=== PATIENT | male | born 1960 | race Caucasian/White ===

== ENCOUNTER 2016-09-11 10:29 | Inpatient (IN) | payer OTHER ==
--- NOTE | ~2016-09-11 | EKG ---
PATIENT: VENKATA TAYLOR UNIT #: [id number] Ventricular Rate: 109 BPM Atrial Rate: 35 BPM P-R Interval: 146 ms QRS Duration: 86 ms Q-T Interval: 352 ms QTC Calculation(Bezet): 474 ms P [place]: 36 degrees Calculated R [place]: 29 degrees Calculated T [place]: 94 degrees Diagnosis Line: Sinus rhythm with frequent PVC's and triplets Diagnosis Line: Possible Inferior infarct , age undetermined Diagnosis Line: Abnormal ECG Diagnosis Line: Diagnosis Line: Confirmed by ASIM TEMPLETON MD ([id number]) on Diagnosis Line: 09/12/2016 11:48:46 AM INTERPRETING MDKrystle MOON
--- NOTE | ~2016-09-11 | EKG ---
PATIENT: VENKATA TALYOR UNIT #: [id number] Ventricular Rate: 61 BPM Atrial Rate: 61 BPM P-R Interval: 150 ms QRS Duration: 92 ms Q-T Interval: 430 ms QTC Calculation(Bezet): 432 ms P [place]: 49 degrees Calculated R [place]: 39 degrees Calculated T [place]: 49 degrees Diagnosis Line: Normal sinus rhythm Diagnosis Line: Possible Inferior infarct (cited on or before Diagnosis Line: 13-SEP-2016) Diagnosis Line: Abnormal ECG Diagnosis Line: When compared with ECG of 15-SEP-2016 13:20, Diagnosis Line: (unconfirmed) Diagnosis Line: Premature ventricular complexes are no longer Diagnosis Line: Present Diagnosis Line: Confirmed by RICARDO SANTOS MD ([id number]) on 09/16/2016 Diagnosis Line: 6:03:25 PM INTERPRETING MD: TOM CARRILLO
--- NOTE | ~2016-09-11 | CO ---
Unit #: [id number] #: [id number] Patient: VENKATA TAYLOR [id number] [facility]. [place], [place] [address] [id number] I MR#: [id number] NAME: VENKATA TAYLOR ROOM: [facility] Age: 56 Sex: M Admission Date: 09/11/2016 : 1960 Attending Physician: Silvia Pruitt M.D. Primary Care Physician: Josias Toussaint M.D. Consultation Date: 09/11/2016 CONSULTATION REPORT PRIMARY CARE PHYSICIAN Josias Toussaint M.D. CONSULTING PHYSICIAN Dr. Janell Minor. REASON FOR CONSULTATION Altered mental status, status post arrest. Verbal order received from him. PATIENT IDENTIFICATION This is a 56-year-old, unknown handedness, male, evaluated initially in the ED T6, he is now currently in ICU 22. SOURCE OF INFORMATION Obtained from the patient's at the bedside as well as medical record. HISTORY OF PRESENT ILLNESS This is a 56-year-old male with past medical history of CAD, hypertension, hyperlipidemia, who presented to [facility] ER after collapsing at work and experienced resuscitated arrest. The patient's states that he has not had any complaints prior to going to work. No recent illness or any positive symptoms of any kind. No complaints of chest pain, shortness of breath, any neurologic changes, or symptoms. The patient is apparently in his usual state of health. He had gone to the [employer] basketball game on the day prior to admission. This morning, he left for work around 6:30 and was seen by his to be in his usual state of health and again he had no complaints. He went to work and apparently collapsed at work. They did have an AED there at the work site and initially the rhythm was read as shock advised. He was shocked three times and had return of spontaneous circulation. He was then brought to the ER for further evaluation as obviously EMS was called. Upon arrival to the ER, the patient was hypotensive. He received total of 3 L of normal saline in the ER. Urinalysis showed findings concerning for UTI. He was given 1 g of Rocephin. He was started on Versed. I believe he was also started on amiodarone. He was seen by Cardiology in the ED. He had a head CT done without contrast that is normal. Head does not show any loss of the mack-white matter at this time upon personal review. Imaging has been reviewed and discussed with Dr. Lloyd. PAST MEDICAL HISTORY 1. Admission to [facility] about a year ago. Details unknown. 2. CAD with history of cardiac stent placement. 3. Hypertension. Unit #: [id number] #: [id number] Patient: VENKATA TAYLOR 4. Hyperlipidemia. 5. Questionable CHF, but no documentation of echocardiogram in [facility]. FAMILY HISTORY Positive for CAD and pacemaker. SOCIAL HISTORY The patient is . Lives with his . He works outside the home. He smokes a pack of cigarettes daily. Drinks alcohol on occasion, but no report of any abuse or illicit drug use. ALLERGIES No known drug allergies. HOME MEDICATIONS As per med rec include metoprolol succinate 50 mg p.o. daily, atorvastatin calcium 80 mg p.o. daily, Plavix 75 mg p.o. daily, aspirin 81 mg p.o. daily. REVIEW OF SYSTEMS Unable to obtain from the patient given his mental status. PHYSICAL EXAMINATION VITAL SIGNS: Temperature is currently 33.3 degrees Celsius. He is on hypothermia protocol, pulse 70, respirations 29, blood pressure 127/89, oxygen saturation 93%. Height 6 feet 1 inch, weight 190 pounds. BMI 25. NEUROLOGIC: Upon my exam initially, the patient is experiencing decorticate posturing and essentially the same upon repeat evaluation with Dr. Lloyd. He initially had negative corneals with me, but has positive corneals with Dr. Lloyd's evaluation. Pupils are 5+. They are reactive, but sluggish. He has positive doll's eyes. No myoclonus seen. No purposeful movements seen. Cranial nerve exam, unable to evaluate sebastian of vision. Again eyes are conjugate with positive oculocephalic reflex. No ptosis or nystagmus or hippus seen. Unable to assess sensation of face and scalp or strength of muscles of facial expression, but no asymmetry seen. Unable to assess hearing, tongue, uvula, palate, head turning, or shoulder shrug. Neck is supple. Motor exam, he has positive decorticate posturing bilaterally somewhat rigid. Sensory exam, unable to evaluate in detail. Decorticate posturing in response to noxious stimuli. Gait and Romberg deferred. Reflexes, unable to elicit. Coordination unable to assess. DIAGNOSTIC STUDIES IMAGING STUDIES: CT of the head, please see above. LABORATORY RESULTS: PT 11.1, INR 1.1. Initial troponin 0.17, repeat troponin 1.19 and repeat troponin following that 1.07. Sodium 139, potassium 4.6, chloride 113, CO2 of 15, glucose 143, BUN 17, creatinine 1.0, estimated GFR above 60, calcium 7, phosphorus 2.2, magnesium 2.1. CK total 1452. PTT 47.1. White blood cell count 13.2, hemoglobin 13.3, hematocrit 39.5, and platelet count 172. Lactic acid 1.1. TSH 4.27, cholesterol 182, triglycerides 294, LDL 88, HDL 33. Other labs and studies are as per chart. Initial lactic acid 4.6. Urine drug screen negative. All diagnostic studies and labs are as per chart have been reviewed. IMPRESSION 1. Status post arrest. Unit #: [id number] #: [id number] Patient: VENKATA TAYLOR 2. Urinary tract infection. 3. Coronary artery disease. 4. Acute respiratory failure. 5. Tobacco use. 6. Elevated troponin. PLAN We will re-evaluate clinically. The patient is being coded on hypothermia protocol. Has shown some improvement neurologically, but still with abnormal findings. Again, the patient has been started on hypothermia, so we will have to re-evaluate over the next 24 to 48 hours. The patient would not be off hypothermia protocol for at least another 24 plus hours. Events happened this morning, so we need to give the patient time to see if the patient has any neurologic improvement and we discussed this with the patient's at the bedside. Unable to provide a neurologic prognosis at this time. We will follow closely along with you and repeat imaging as condition allows and indicates and further discussion with the patient's regarding prognosis. Pending re-evaluation at 48 to 72 hours. Please call for any questions or issues. We thank you very much for allowing us to assist in care of this patient. Dictated by... Saige Rosario A.P.R.N. for Latricia Lloyd M.D. ALEXY/amanda TD: 09/12/2016 04:10 JOB #: [id number] CONSULTATION REPORT X Saige Rosario APRN CONSULTATION REPORT
--- NOTE | ~2016-09-11 | CO ---
Unit #: [id number] #: [id number] Patient: VENKATA TAYLOR [id number] [place], [place] [address] [id number] I MR#: [id number] NAME: VENKATA TAYLOR ROOM: [facility] Age: 56 Sex: M Admission Date: 09/11/2016 : 1960 Attending Physician: Silvia Pruitt M.D. Primary Care Physician: Josias Toussaint M.D. Consultation Date: 09/11/2016 CONSULTATION REPORT REASON FOR CONSULT ICU management. CHIEF COMPLAINT Cardiac arrest. HISTORY OF PRESENT ILLNESS This is a 56-year-old male with past medical history significant for coronary artery disease, hypertension and hyperlipidemia who presented to the emergency room for evaluation of the above. History was obtained from ER physician, house doctor and the who is at bedside. Per , the patient was doing okay up to this morning when he went to work, but then, all of a sudden, he was witnessed by some coworkers to pass out. EAD was immediately placed on him, and shock was advised. The patient shocked 3 times with return of spontaneous circulation. He was brought to the emergency room via EMS. In the ER the patient had multiple runs of V tach, but he did not lose his pulse. He is currently on the vent with normal blood pressure. The patient has no corneal reflex, and he is decorticating with cough reflex. REVIEW OF SYSTEMS Unable to obtain from the patient due to his condition. PAST MEDICAL HISTORY 1. Coronary artery disease. 2. Hypertension. 3. Hyperlipidemia. 4. Possible congestive heart failure. PAST SURGICAL HISTORY 1. Cardiac stent placement. 2. Cardiac cath. SOCIAL HISTORY The patient lives with his . He smokes 1 pack per day. He occasionally drinks alcohol. CODE STATUS Full. FAMILY HISTORY His mother had a pacemaker. Unit #: [id number] #: [id number] Patient: VENKATA TAYLOR ALLERGIES No known drug allergies. HOME MEDICATIONS Aspirin and Plavix and some blood pressure medication. PHYSICAL EXAMINATION GENERAL: The patient appears ill on the ventilator. VITAL SIGNS: Blood pressure 136/74, respiratory rate 45, O2 saturation 98%. HEENT: Atraumatic, normocephalic. PERRLA. Poor dentition. NECK: Supple. No JVD. No lymphadenopathy. CHEST: Bilateral fine rhonchi. HEART: S1, S2. No murmur, gallops or rubs. ABDOMEN: Soft, nontender. Bowel sounds positive. No hepatosplenomegaly. EXTREMITIES: No edema or cyanosis. SKIN: No rashes. 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 He is decorticating to cough reflex. No corneal reflex. He is not withdrawing to painful stimuli. DIAGNOSTIC STUDIES LABORATORY: Creatinine 1.6, bicarb 12, calcium 8.2. White blood count 9.7. ASSESSMENT 1. Acute hypoxic respiratory failure. 2. Status post V tach arrest. 3. Rule out anoxic brain injury. 4. Acute kidney injury. 5. Lactic acidosis. PLAN 1. The patient is very critical. Will continue the patient on vent support. 2. Hypothermia protocol will be initiated with the help of neurology and cardiology. 3. Amiodarone/lidocaine drips. 4. Full treatment Lovenox. 5. Propofol drip. 6. Levophed drip if needed. 7. DVT/GI prophylaxis. NOTE: Critical care time spent on this patient was 50 minutes. Dictated by... Sly Minor M.D. EA/damien TD: 09/11/2016 15:32 JOB #: [id number] Unit #: [id number] #: [id number] Patient: VENKATA TAYLOR CONSULTATION REPORT X SLY FLYNN MD X CONSULTATION REPORT
--- NOTE | ~2016-09-11 | DS ---
Unit #: [id number] #: [id number] Patient: VENKATA TAYLOR [id number] [place], [place] [address] [id number] I MR#: [id number] NAME: VENKATA TAYLOR ROOM: 571 Age: 56 Sex: M Admission Date: 09/11/2016 : 1960 Discharge Date: 09/19/2016 Attending Physician: Reinaldo Carcamo M.D. Primary Care Physician: Josias Toussaint M.D. DISCHARGE SUMMARY CONSULTANTS 1. Dr. Janell Minor 2. Dr. Kyle 3. Dr. Lloyd PROCEDURES 1. Hypothermia protocol. 2. Cardiac catheterization status post stent in the left circumflex. ADMISSION DIAGNOSIS Resuscitated arrest. SECONDARY DIAGNOSES 1. Status post cardiac arrest resuscitated on hypothermia protocol, recovered well. 2. Coronary artery disease, status post stent placement. 3. Multiple VT. He will be discharged on LifeVest. 4. Hypertension. 5. Hyperlipidemia. HISTORY OF PRESENT ILLNESS The patient is a 56-year-old with the past medical history of coronary artery disease, hypertension, hyperlipidemia, who was admitted on 09/11/2016 through the emergency room with the chief complaint of status post cardiac arrest. In the hospital course initially he was started on hypothermia protocol, he was intubated, he was in the ICU and started having multiple VT and Cardiology started him on lidocaine drip. The patient slowly stabilized. In the hospital course, on 09/15/2016, he had a cardiac catheterization and had a stent placed. He had a 2D echo done which showed an EF of 30% to 35%, severe inferior wall and apical hypokinesia cannot be ruled out. Technically difficult exam. Mild mitral regurgitation, mild tricuspid regurgitation and with an right ventricular systolic pressure of 36 mmHg. The patient was slowly extubated, he was doing well on the floor, he was transferred to the telemetry from the ICU. In the hospital course, he was placed with a LifeVest. Dr. Kyle recommended the patient to be discharged home with the LifeVest. If he is doing better, follow with him, clinically and he may require down the road an AICD placement to be done as an outpatient. I requested the patient to follow with Dr. Kyle as an outpatient, take all of his medications. If he at all he develops any chest pain or palpitations, call 911 or go to the nearest emergency room. He was seen by Neurology and, initially, there was a question of anoxic encephalopathy. Slowly he recovered well and now he is pretty much back Unit #: [id number] #: [id number] Patient: VENKATA TAYLOR to normal. PHYSICAL EXAMINATION ON DISCHARGE VITAL SIGNS: Temperature 97.9, pulse rate 65, respiratory rate 16, blood pressure 102/71. GENERAL: Patient is alert, oriented times 3, lying in the bed in no acute distress. HEENT: Normocephalic, atraumatic. No icterus. PERRLA. Extraocular muscles are intact. NECK: Supple. No JVD. HEART: S1, S2 regular rate and rhythm. CHEST: Bilateral equal air entry. Clear to auscultation. ABDOMEN: Soft and nontender. EXTREMITIES: No edema. Normal pulses. The patient will be discharged on LifeVest. DISCHARGE MEDICATIONS Include: 1. Magnesium oxide 400 mg b.i.d. 2. Flonase 0.04% nasal spray b.i.d. 3. Amiodarone 400 mg b.i.d. for 4 more days; 200 mg b.i.d. for 7 days; then, 200 mg p.o. daily. 4. Metoprolol 12.5 mg p.o. b.i.d. 5. Lasix 40 mg p.o. b.i.d. 6. Lipitor 20 mg h.s. 7. Lisinopril 2.5 mg h.s. 8. Aspirin 81 mg daily. 9. Brilinta 90 mg p.o. b.i.d. 10. Spironolactone 25 mg daily. 11. Protonix 40 mg daily. 12. Potassium phosphorus/sodium phosphorus 250 mg, 625 mg one pack b.i.d. 13. KCl 40 mEq p.o. daily. 14. Nitroglycerin 0.4 mg chest pain p.r.n. every 5 minutes x3. DISCHARGE INSTRUCTIONS Patient is requested to follow with Dr. Kyle as an outpatient. Total time spent on his discharge 25 minutes. Dictated by..Salty Casas/korey TD: 09/20/2016 21:20 JOB #: [id number] Unit #: [id number] #: [id number] Patient: VENKATA TAYLOR DISCHARGE SUMMARY X X DISCHARGE SUMMARY
--- NOTE | ~2016-09-11 | CT71 ---
[facility] A Service of [facility] RADIOLOGY TEXT RESULTS PATIENT: VENKATA TAYLOR LOCATION: CICCU3 CICCU3- : 58 UNIT #: [id number] AGE: [address]: Reinaldo Carcamo MD SEX: M ORDER DR: [id number] [facility] [address]. [place], [place] [address] [id number] I MR#: [id number] Acc #: [id number] NAME: VENKATA TAYLOR : 1960 SEX: M STUDY DATE/TIME: 09/11/2016 8:39 UNIT: CEDOF ROOM: 64509 STUDY DESCRIPTION: CT Head Wo Contrast Attending Physician: Silvia Pruitt M.D. Ordering Physician: Morgan Akbar M.D. Primary Care Physician: Josias Toussaint M.D. MEDICAL IMAGING REPORT This report is preliminary unless electronic signature is present EXAM Head CT no contrast PROCXEDURE Axial unenhanced head CT COMPARISON: None HISTORY Recent cardiac arrest with confusion for one day. The CT exam was performed with one or more of the following radiation dose reduction techniques: automatic exposure control, adjustment of mA and/or kV according to patient size, and iterative reconstruction. FINDINGS Brain parenchymal density is normal. There is no intracranial hemorrhage or mass. There is no hydrocephalus or extraaxial fluid collection. The extracranial soft tissues are unremarkable. The skull base and calvaria re unremarkable. IMPRESSION Normal negative unenhanced head CT. Dictated by... Harlan Valderrama M.D. THIS IS AN ELECTRONICALLY VERIFIED REPORT Harlan Valderrama M.D. at 09/14/2016 7:06 PM TEV/cmm [facility] A Service of [facility] RADIOLOGY TEXT RESULTS PATIENT: VENKATA TAYLOR LOCATION: CICCU3 CICCU3- : 58 UNIT #: [id number] AGE: [address]: Reinaldo Carcamo MD SEX: M ORDER DR: TD: 09/11/2016 11:28 JOB #: [id number] MEDICAL IMAGING REPORT COPY
--- NOTE | ~2016-09-11 | EKG ---
PATIENT: VENKATA TAYLOR UNIT #: [id number] Ventricular Rate: 81 BPM Atrial Rate: 81 BPM P-R Interval: 144 ms QRS Duration: 84 ms Q-T Interval: 376 ms QTC Calculation(Bezet): 436 ms P [place]: 46 degrees Calculated R [place]: 3 degrees Calculated T [place]: 16 degrees Diagnosis Line: Sinus rhythm with frequent Premature ventricular Diagnosis Line: complexes Diagnosis Line: Inferior infarct (cited on or before 13-SEP-2016) Diagnosis Line: Abnormal ECG Diagnosis Line: When compared with ECG of 15-SEP-2016 06:28, Diagnosis Line: (unconfirmed) Diagnosis Line: No significant change was found Diagnosis Line: Confirmed by RICARDO SANTOS MD ([id number]) on 09/16/2016 Diagnosis Line: 5:58:51 PM INTERPRETING MD: TOM CARRILLO
--- NOTE | ~2016-09-11 | HP ---
Unit #: [id number] #: [id number] Patient: VENKATA TAYLOR [id number] [facility]. [place], [place] [address] [id number] I MR#: [id number] NAME: VENKATA TAYLOR ROOM: 80148 Age: 56 Sex: M Admission Date: 09/11/2016 : 1960 Attending Physician: Silvia Pruitt M.D. Primary Care Physician: Josias Toussaint M.D. HISTORY AND PHYSICAL CHIEF COMPLAINT Resuscitated arrest. HISTORY OF PRESENT ILLNESS The patient is a 56-year-old male with past medical history of coronary artery disease, hypertension and hyperlipidemia who presented to the emergency department for evaluation of the above. History is obtained from chart review and discussion with ER staff, as well as the patient's , who is at the bedside. The patient is unable to provide history. The patient was apparently in his usual state of health. He, in fact, went to the [employer] basketball game on the day prior to admission. This morning he left for work around 6:30 and was seen by his to be in his usual state of health. He had no complaints. He apparently went to work. He collapsed while at work. They did have an AED at the worksite and initially the rhythm was read as "shock advised." He was shocked 3 times and had return of spontaneous circulation. He was brought to the emergency department for further evaluation. Upon arrival in the emergency department, the patient's was 82, respirations 25, blood pressure 99/85. He was started on a Versed drip. He was given 2 liters of normal saline. He actually received a total of 3 liters of normal saline in the emergency department. Urinalysis showed findings concerning for urinary tract infection. He was also given a gram of Rocephin. Laboratory is notable for glucose of 328, bicarb 12, anion gap 19. He is being admitted to [facility] for evaluation and further treatment. Of note, the patient has had several runs of V tach in the emergency department. He is currently being seen by cardiology. They have started him on an amiodarone drip. PAST MEDICAL HISTORY 1. Admission to [facility] more than a year ago. 2. Coronary artery disease status post cardiac stent placement. 3. Hypertension. 4. Hyperlipidemia. 5. Possibly CHF with no documented echocardiogram in [facility]. PAST SURGICAL HISTORY 1. Cardiac stent placement. 2. Cardiac catheterization. SOCIAL HISTORY The patient lives with his . He smokes a pack of cigarettes daily. He occasionally drinks alcohol. He works at "[employer] Unit #: [id number] #: [id number] Patient: VENKATA TAYLOR CODE STATUS Full code. FAMILY HISTORY Notable for his mother having a pacemaker. ALLERGIES Unknown. HOME MEDICATIONS Include aspirin and Plavix. Home medications will need to be reviewed and verified. REVIEW OF SYSTEMS A 10-point review of systems is unobtainable from the patient due to altered mental status. PHYSICAL EXAMINATION VITAL SIGNS: Temperature is not recorded. Pulse 82, respirations 25, blood pressure 99/85. GENERAL: The patient is currently on a Versed drip. HEENT: The head is atraumatic. Mucous membranes are moist. NECK: Supple. Trachea is midline. CARDIOVASCULAR: Regular rate and rhythm. RESPIRATORY: Lungs are relatively clear to auscultation bilaterally. He is currently intubated. ABDOMEN: Soft. Bowel sounds are present in all 4 quadrants. EXTREMITIES: There is no pedal edema. There are no signs of trauma. PSYCHIATRIC: Unable to assess. SKIN: Skin of examined areas is warm and dry. NEUROLOGIC: The pupils are equal and round. He is currently sedated. DIAGNOSTIC TESTS CARDIOVASCULAR: EKG is not currently on the chart but, per ER documentation, showed normal sinus rhythm with inferior Q waves and a rate of 83 beats per minute. IMAGING: Chest x-ray shows mild vascular congestion. CT of the head shows no acute abnormality. LABORATORY: Complete blood count is completely normal. Troponin is less than 0.05. INR is 1. Comprehensive metabolic panel notable for bicarb of 12, glucose 328, anion gap 19, BUN 17, creatinine 1.6, calcium 8.2, AST 52, ALT 46. Tylenol, salicylate and alcohol levels are negative. Urine tox screen is negative. Urinalysis notable for 3+ protein, 250 glucose, 2+ blood, 25-50 red blood cells, innumerable white blood cells, 2+ bacteria. Arterial blood gas shows pH of 7.22, pCO2 of 38.6, pO2 203 on assist control with an FIO2 of 100%. Magnesium is 2.4. ASSESSMENT 1. The patient is a 56-year-old male with resuscitated arrest. The patient is currently on an amiodarone drip. I have discussed this patient with Dr. Minor, and we are going to start hypothermia protocol. 2. Urinary tract infection. 3. Hyperglycemia with no history of diabetes. 4. History of coronary artery disease status post stent placement. Unit #: [id number] #: [id number] Patient: VENKATA TAYLOR 5. Hypertension. 6. Hyperlipidemia. 7. Tobacco abuse. PLAN 1. Admit to ICU. 2. NPO. 3. Consult Dr. Minor/Dr. Suresh regarding resuscitated arrest and vent management. 4. Consult Dr. Kyle regarding resuscitated arrest. 5. Serial cardiac enzymes. 6. Blood cultures x2. 7. Urine culture and sensitivity on urine in the lab. 8. STAT lactic acid. 9. Sepsis protocol. 10. Rocephin 1 gram IV daily. 11. Versed drip per sedation protocol. 12. Levophed drip per protocol for MAP greater than 65. 13. Normal saline at 125 mL and hour. 14. Protonix for GI prophylaxis. 15. SCDs for DVT prophylaxis. 16. Tylenol p.r.n. 17. Hemoglobin A1C. 18. Low-dose sliding scale insulin with Accu-Cheks. 19. TSH. 20. Repeat labs in the morning. 21. Regarding code status, the patient is a full code. NOTE: I discussed the patient's condition with his . All of her questions were answered. Thirty-six minutes critical care time spent in the care of this patient (10:50 to 11:26 a.m.). Dictated by Silvia Pruitt M.D. CAMILO/damien TD: 09/11/2016 11:54 JOB #: [id number] HISTORY AND PHYSICAL X Silvia Pruitt MD HISTORY AND PHYSICAL
--- NOTE | ~2016-09-11 | OR ---
Unit #: [id number] #: [id number] Patient: VENKATA TAYLOR [id number] [address] [address] [id number] I MR#: [id number] NAME: VENKATA TAYLOR ROOM: [facility] Date of Procedure: 09/11/2016 Admission Date: 09/11/2016 Surgeon: Sly Minor M.D. : 1960 Attending Physician: Silvia Pruitt M.D. Primary Care Physician: Josias Toussaint M.D. PROCEDURE OPERATIVE NOTE PROCEDURE PERFORMED Left intrajugular central venous catheter placement with ultrasound guidance. INDICATION FOR PROCEDURE Cardiac arrest. PREOPERATIVE DIAGNOSIS Cardiac arrest. COMPLICATIONS None. DESCRIPTION OF PROCEDURE An informed consent was obtained from the patient's after explaining the benefit and risk of this procedure. The patient was prepped and positioned in a proper way, then body drape was applied. With the ultrasound guidance, a needle was inserted in the left IJ until blood flow was obtained. Then a guidewire was inserted and the needle was removed and dilator was used. Then a catheter was inserted over the guidewire and the guidewire was removed. The catheter was flushed appropriately and sutured in place. Biopatch and clean dressing were applied. STAT chest x-ray confirmed placement with no immediate complication. Dictated by... Salty Muñoz TD: 09/11/2016 15:36 JOB #: [id number] Unit #: [id number] #: [id number] Patient: VENKATA TAYLOR PROCEDURE OPERATIVE NOTE X SLY FLYNN MD X PROCEDURE OPERATIVE NOTE
--- NOTE | ~2016-09-11 | EKG ---
PATIENT: VENKATA TAYLOR UNIT #: [id number] Ventricular Rate: 64 BPM Atrial Rate: 64 BPM P-R Interval: 154 ms QRS Duration: 96 ms Q-T Interval: 450 ms QTC Calculation(Bezet): 464 ms P [place]: 47 degrees Calculated R [place]: 3 degrees Calculated T [place]: 29 degrees Diagnosis Line: Normal sinus rhythm Diagnosis Line: Inferior infarct (cited on or before 13-SEP-2016) Diagnosis Line: Abnormal ECG Diagnosis Line: When compared with ECG of 16-SEP-2016 07:26, Diagnosis Line: No significant change was found Diagnosis Line: Confirmed by RICARDO SANTOS MD ([id number]) on 09/20/2016 Diagnosis Line: 7:14:02 AM INTERPRETING MD: TOM CARRILLO
--- NOTE | ~2016-09-11 | EKG ---
PATIENT: VENKATA TAYLOR UNIT #: [id number] Ventricular Rate: 68 BPM Atrial Rate: 68 BPM P-R Interval: 160 ms QRS Duration: 86 ms Q-T Interval: 406 ms QTC Calculation(Bezet): 431 ms P [place]: 49 degrees Calculated R [place]: 42 degrees Calculated T [place]: 43 degrees Diagnosis Line: Sinus rhythm with occasional Premature ventricular Diagnosis Line: complexes Diagnosis Line: Possible Inferior infarct (cited on or before Diagnosis Line: 13-SEP-2016) Diagnosis Line: Abnormal ECG Diagnosis Line: When compared with ECG of 13-SEP-2016 11:28, Diagnosis Line: Premature ventricular complexes are now Present Diagnosis Line: Nonspecific T wave abnormality, improved in Diagnosis Line: Lateral leads Diagnosis Line: Confirmed by RICARDO SANTOS MD ([id number]) on 09/16/2016 Diagnosis Line: 5:53:59 PM INTERPRETING MD: TOM CARRILLO
--- NOTE | ~2016-09-11 | CR72 ---
[facility] A Service of [facility] RADIOLOGY TEXT RESULTS PATIENT: VENKATA TAYLOR LOCATION: [facility] : [birth year] UNIT #: [id number] AGE: [address]: Reinaldo Carcamo MD SEX: M ORDER DR: [id number] [place] [id number] [facility]. [place], [place] [address] [id number] I MR#: [id number] Acc #: [id number] NAME: VENKATA TAYLOR : 1960 SEX: M STUDY DATE/TIME: 09/13/2016 2:47 UNIT: [facility] ROOM: [facility] STUDY DESCRIPTION: CR Chest Single View Portable Attending Physician: Reinaldo Carcamo M.D. Ordering Physician: Gonzalo Minor M.D. Primary Care Physician: Josias Toussaint M.D. MEDICAL IMAGING REPORT This report is preliminary unless electronic signature is present EXAM Portable AP view of the chest. COMPARISON September 12, 2016 and September 11, 2016 INDICATION 56-year-old male with respiratory failure requiring ventilatory support for 3 days. Cardiac arrest 3 days ago. FINDINGS AND IMPRESSION Endotracheal tube tip terminates 6.2 cm above the marielena. Left internal jugular catheter terminates in the upper SVC. Gastric suction type tube is noted with the side port in the gastric body. There is top normal heart size for portable technique and low lung volumes. No evidence of pneumothorax or pleural effusion. There may be minimal left retrocardiac opacities, likely not significantly changed from comparison but possibly reflecting atelectasis. Correlation to exclude signs of pneumonia are recommended. Dictated by... Brendon Graves M.D. THIS IS AN ELECTRONICALLY VERIFIED REPORT Brendon Graves M.D. at 09/18/2016 9:00 PM ANTONETTE/jaxon TD: 09/13/2016 09:45 JOB #: [id number] MEDICAL IMAGING REPORT [facility] A Service of [facility] RADIOLOGY TEXT RESULTS PATIENT: VENKATA TAYLOR LOCATION: [facility] 571-01 : 58 UNIT #: [id number] AGE: [address]: Reinaldo Carcamo MD SEX: M ORDER DR: COPY
--- NOTE | ~2016-09-11 | CR72 ---
[facility] A Service of [facility] & [facility] RADIOLOGY TEXT RESULTS PATIENT: VENKATA TAYLOR LOCATION: [place] [address] : 58 UNIT #: [id number] AGE: [address]: Reinaldo Carcamo MD SEX: M ORDER DR: [id number] [facility] [address] [facility] [place], [place] [address] [id number] I MR#: [id number] Acc #: [id number] NAME: VENKATA TAYLOR : 1960 SEX: M STUDY DATE/TIME: 09/17/2016 04:19 UNIT: [facility] ROOM: [facility] STUDY DESCRIPTION: CR Chest Single View Portable Attending Physician: Reinaldo Carcamo M.D. Ordering Physician: Darius Kyle M.D. Primary Care Physician: Josias Toussaint M.D. MEDICAL IMAGING REPORT This report is preliminary unless electronic signature is present EXAM Portable chest, 09/17 at 04:19 INDICATION Status post resuscitated arrest. Respiratory failure. Coronary artery disease. FINDINGS AP portable chest is compared with 09/14/2016. The patient has been extubated. Feeding tube has been removed. Heart size stable. There is some mild atelectasis at the left base. Lungs are otherwise clear. No pneumothorax. Left IJ line in the SVC unchanged. Dictated by... Ken Gregg Jr., M.D. THIS IS AN ELECTRONICALLY VERIFIED REPORT Ken Gregg Jr., M.D. at 09/17/2016 9:33 PM TEX/awais TD: 09/17/2016 17:04 JOB #: [id number] MEDICAL IMAGING REPORT COPY
--- NOTE | ~2016-09-11 | CR72 ---
[facility] A Service of [place] [facility] RADIOLOGY TEXT RESULTS PATIENT: VENKATA TAYLOR LOCATION: [address] : 58 UNIT #: [id number] AGE: [address]: Reinaldo Carcamo MD SEX: M ORDER DR: [id number] [facility] [address] [facility]. [place], [place] [address] [id number] I MR#: [id number] Acc #: [id number] NAME: VENKATA TAYLOR : 1960 SEX: M STUDY DATE/TIME: 09/14/2016 5:40 UNIT: [facility] ROOM: [facility] STUDY DESCRIPTION: CR Chest Single View Portable Attending Physician: Reinaldo Carcamo M.D. Ordering Physician: Gonzalo Minor M.D. Primary Care Physician: Josias Toussaint M.D. MEDICAL IMAGING REPORT This report is preliminary unless electronic signature is present EXAM Portable chest HISTORY Respiratory failure. Cardiac arrest, onset of symptoms 3 days ago. Patient on a ventilator. COMPARISON 09/13/2016 FINDINGS Examination demonstrates interval removal of the patient's NG tube with placement of a flexible feeding tube distal tip well below the GE junction but not visualized on this radiograph. Endotracheal tube, left neck approach central line remain in satisfactory position. Moderate lung volumes. A small amount of right perihilar/right infrahilar atelectasis or infiltrate and a small amount of lingular atelectasis. No dense consolidation. No sizeable effusions. Borderline cardiomegaly. No visible pneumothorax. Dictated by... Yovany Kc M.D. THIS IS AN ELECTRONICALLY VERIFIED REPORT Yovany Kc M.D. at 09/14/2016 3:58 PM MANJINDER/crescencio TD: 09/14/2016 08:36 JOB #: [id number] MEDICAL IMAGING REPORT COPY
--- NOTE | ~2016-09-11 | A ---
[facility] DATE: 09/12/16 Patient: VENKATA TAYLOR Physician: REBECA Address: [address] [place] [address] Room/Bed: [address], Zip: [place] [address] Admit Date: 09/11/16 Date of : 58 Height: 6 1 Weight: 198 90 NUTRITIONAL ASSESSMENT: REASON: NPO STATUS IN ICU, ENTERAL NUTRITION RECOMMENDATIONS 56 yo male admitted after being found down at work, s/p resuscitated arrest PMH: CAD, HTN, HLD, possible CHF, s/p cardiac cath and cardiac stents, smoker Anthropometrics: Ht: 6'1" Wt: 86.5 kg BMI: 25.2 Labs: Cl- 113 Gluc 127 Ca++ 7.4 AST 52 ALT 46 Phos 2.0 Trig 294 Meds: Propofol @ 20.8 mL/hr, KCl, fentanyl, novolog, lopressor, protonix, NaCl I/O & Bowel function: 3078/3136, last BM 09/11, NGT (300 cc output) Skin Integrity: no breakdown noted Edema: none noted Estimated Nutrition Needs: 2162- 2595 kcals (25-30 kcals/kg) 104-130 grams protein (1.2-1.5 grams/kg) Assessment: Chart reviewed, events noted. Pt is intubated and sedated in the ICU. Propofol is providing an additional 549 kcals from lipids at this time. Hypothermia protocol initiated yesterday. RN requested enteral nutrition recommendations for when protocol is lifted. Please see recommendations below. Dx: Inadequate protein-energy intake RT clinical condition AEB NPO status. Intervention: 1. Enteral nutrition once medically feasible Monitoring, Evaluation and Goals: 1. Enteral nutrition; initiate once medically feasible, provide >80% goal volume 2. Labs; WNL 3. Weight; prevent unintentional weight loss Recommendations: 1. Replete electrolytes to WNL (Phos low). 2. Once medically feasible when the pt is hemodynamically stable, recommend initiating [facility] DATE: 09/12/16 Patient: VENKATA TAYLOR Physician: REBECA Address: [address] [place] [address] Room/Bed: [address], Zip: [place] [address] Admit Date: 09/11/16 Date of : [birth year] Height: 6 1 Weight: 198 90 enteral nutrition with Jevity 1.5 @ 20 mL/hr. Increase by 10 mL q 8 hrs as tolerated to indicated goal below based on propofol administration: WHILE THE PT IS RECEIVING PROPOFOL: -Increase Jevity 1.5 to 50 mL/hr + 30 ml Prostat BID to provide: 2549 kcals/ 107 grams protein/ 912 mL free H20 WHEN THE PT IS NO LONGER RECEIVING PROPOFOL: -Increase Jevity 1.5 to 65 mL/hr to provide: 2340 kcals/ 100 grams protein/ 1186 mL free H20 -Discontinue Prostat 3. If enteral nutrition started, monitor for symptoms of intolerance and residuals per protocol. Pt is at moderate-severe nutritional risk. RD will follow hospital course. Respectfully, BRIANA LINN RD, LD [facility] cc: client file
--- NOTE | ~2016-09-11 | CR72 ---
[facility] A Service of [facility] & [facility] RADIOLOGY TEXT RESULTS PATIENT: VENKATA TAYLOR LOCATION: [facility] : 58 UNIT #: [id number] AGE: [address]: Reinaldo Carcamo MD SEX: M ORDER DR: [id number] [facility] [address] [facility]. [place], [place] [address] [id number] I MR#: [id number] Acc #: [id number] NAME: VENKATA TAYLOR : 1960 SEX: M STUDY DATE/TIME: 09/11/2016 8:06 UNIT: [facility] ROOM: [id number] STUDY DESCRIPTION: CR Chest Single View Portable Attending Physician: Silvia Pruitt M.D. Ordering Physician: Morgan Akbar M.D. Primary Care Physician: Josias Toussaint M.D. MEDICAL IMAGING REPORT This report is preliminary unless electronic signature is present EXAM Portable chest x-ray, 09/11/2016. HISTORY Respiratory arrest, status post endotracheal tube placement. Intubated. Cardiac arrest. Full arrest at work this a.m. FINDINGS AP radiograph of chest is presented. No comparisons. Endotracheal tube terminates 4.7 cm above the marielena. Heart mildly enlarged. Evidence of prior coronary artery stenting. Lungs moderately well-inflated. Mild pulmonary vascular prominence suggesting mild vascular congestion. Subtle increase in central interstitial markings, likely reflecting borderline interstitial edema. No dense airspace disease, pleural effusion, or pneumothorax. No suspicious nodule. At least mild gaseous distention of stomach. No free air. Dictated by... Daniel Armstrong M.D. THIS IS AN ELECTRONICALLY VERIFIED REPORT Daniel Armstrong M.D. at 09/13/2016 7:55 AM AYDE/marychuy TD: 09/11/2016 11:38 JOB #: [id number] MEDICAL IMAGING REPORT COPY
--- NOTE | ~2016-09-11 | CR7 ---
[facility] A Service of [facility] RADIOLOGY TEXT RESULTS PATIENT: VENKATA TAYLOR LOCATION: [address] : 58 UNIT #: [id number] AGE: [address]: Reinaldo Carcamo MD SEX: M ORDER DR: [id number] [place] [address] [place], [place] [address] [id number] I MR#: [id number] Acc #: [id number] NAME: VENKATA TAYLOR : 1960 SEX: M STUDY DATE/TIME: 09/13/2016 13:05 UNIT: [facility] ROOM: [facility] STUDY DESCRIPTION: CR Abdomen Single AP View Attending Physician: Reinaldo Carcamo M.D. Ordering Physician: Reinaldo Carcamo M.D. Primary Care Physician: Josias Toussaint M.D. MEDICAL IMAGING REPORT This report is preliminary unless electronic signature is present EXAM Frontal abdomen 09/13/2016 INDICATIONS Dobbhoff tube placement in a 56-year-old male, abdominal pain. Morbid obesity. Symptoms began today. Status post lap-banding. Frontal abdomen was performed. COMPARISON STUDIES No comparisons FINDINGS There is an enteric tube present and the tip is at the expected level of the gastric antrum/pylorus. There has been interval removal of a preexisting enteric tube and replacement with the existing flexible tip feeding tube. Bowel gas pattern unremarkable. IMPRESSION The tip of the flexible tip feeding tube is at the level of the gastric antrum/pylorus. Dictated by... Andrew Bradford M.D. THIS IS AN ELECTRONICALLY VERIFIED REPORT Andrew Bradford M.D. at 09/13/2016 4:53 PM Yves TD: 09/13/2016 15:16 JOB #: [id number] MEDICAL IMAGING REPORT [facility] A Service of [facility] RADIOLOGY TEXT RESULTS PATIENT: VENKATA TAYLOR LOCATION: [facility] CIC[facility]3-22 : 58 UNIT #: [id number] AGE: [address]: Reinaldo Carcamo MD SEX: M ORDER DR: COPY
--- NOTE | ~2016-09-11 | CR7 ---
[facility] A Service of [facility] & [facility] RADIOLOGY TEXT RESULTS PATIENT: VENKATA TAYLOR LOCATION: [address] : 58 UNIT #: [id number] AGE: [address]: Reinaldo Carcamo MD SEX: M ORDER DR: [id number] [facility] [address] [facility]. [place], [place] [address] [id number] I MR#: [id number] Acc #: [id number] NAME: VENKATA TAYLOR : 1960 SEX: M STUDY DATE/TIME: 09/14/2016 14:23 UNIT: [facility] ROOM: [facility] STUDY DESCRIPTION: CR Abdomen Single AP View Attending Physician: Reinaldo Carcamo M.D. Ordering Physician: Reinaldo Carcamo M.D. Primary Care Physician: Josias Toussaint M.D. MEDICAL IMAGING REPORT This report is preliminary unless electronic signature is present EXAM Single view abdomen 09/14/2016 HISTORY Dobbhoff tube placement. COMPARISON 09/13/2016 FINDINGS Single view of the upper abdomen lower chest demonstrates weighted tip of a Dobbhoff feeding tube distal tip in expected position of the distal stomach with at least 26 cm catheter below the GE junction. This should be satisfactory gastric positioning. Normal bowel gas pattern. Lung bases unremarkable. Dictated by... Yovany Kc M.D. THIS IS AN ELECTRONICALLY VERIFIED REPORT Yovany Kc M.D. at 09/15/2016 5:03 PM Sarmad TD: 09/14/2016 16:48 JOB #: [id number] MEDICAL IMAGING REPORT COPY
--- NOTE | ~2016-09-11 | CO ---
Unit #: [id number] #: [id number] Patient: VENKATA TAYLOR [id number] [address] [place], [place] [address] [id number] I MR#: [id number] NAME: VENKATA TAYLOR ROOM: [facility] Age: 56 Sex: M Admission Date: 09/11/2016 : 1960 Attending Physician: Reinaldo Carcamo M.D. Primary Care Physician: Josias Toussaint M.D. CONSULTATION REPORT REASON FOR CONSULTATION Ventricular tachycardia/resuscitated arrest. HISTORY OF PRESENT ILLNESS This is a 56-year-old white male, who is known to Dr. Brothers, who has a history of three myocardial infarctions in the past. He had his first stent placed in 2008 according to previous records from [facility]. In 2009, he had another stent placed. There are no details available. In 2012, he had ST-elevation myocardial infarction at [facility], where he underwent angioplasty with drug-eluting stent to the circumflex, second obtuse marginal branch and the mid LAD. The right coronary artery was totally occluded, which was chronic. His last cardiac testing was in 06/2016, where he was told it was normal according to the . He denies a history of hypertension, but he has hyperlipidemia and a history of nicotine abuse. The patient presents to the emergency room after cardiac arrest. He was at work and suddenly collapsed. An AED was placed and shock was advised. He received three shocks before return of spontaneous circulation. He was subsequently intubated. In the emergency room, the patient was noted to have runs of ventricular tachycardia. His electrolytes were within normal limits. There were no acute changes on his EKG. Troponin initially negative, but repeat troponin 0.17. He was briefly hypotensive, but he responded well to IV fluids. PAST MEDICAL HISTORY 1. Myocardial infarction x3, status post PCI and stent in 04/2009 and PCI and stent in 04/2010. No details available. 2. ST-elevation myocardial infarction on 07/28/2012 at [facility] that reveals left main with minor luminal irregularities. 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 Diagonal branch, small in caliber, 2 mm, with 80% midvessel stenosis. Distal LAD with mild tortuosity. Circumflex artery, large caliber with a very small first marginal branch. A second marginal branch is occluded at the proximal portion of the previous placed stent. Some collaterals filling [id number] to the distal bifurcating second marginal system. Right coronary artery, codominant vessel, occluded proximally. Fills poorly. Right coronary artery was known to be occluded previously. Ejection fraction of 40% to 45%. 3. Status post angioplasty with drug-eluting stents to the mid obtuse marginal branch using a 2.25 x 15 mm ION drug-eluting stent and PCI with drug-eluting stent to the mid diagonal branch of the LAD using a 2.5 x 16 mm ION drug-eluting stent. Of note, the lower branch of the circumflex Unit #: [id number] #: [id number] Patient: VENKATA TAYLOR artery was jailed at 50% ostial stenosis. The previously placed stent appears to contain severe in-stent stenosis involving the proximal half. 4. 2D echocardiogram, 07/30/2012, shows ejection fraction of 30% to 35% with diastolic dysfunction. There is basal inferior, mid inferolateral, mid inferior and apical-lateral hypokinesis. Apical inferior wall also hypokinetic. 5. Hyperlipidemia. 6. Active smoker. PAST SURGICAL HISTORY No previous surgeries. SOCIAL HISTORY The patient is . He continues to smoke at least a half a pack of cigarettes daily. According to previous records, he drinks heavily on the weekends. No records of illicit drug use. FAMILY HISTORY Positive for coronary artery disease. ALLERGIES No known drug allergies from previous records. HOME MEDICATIONS Currently, not reconciled. REVIEW OF SYSTEMS Unable to obtain because the patient is currently intubated and sedated. PHYSICAL EXAMINATION VITAL SIGNS: Blood pressure 116/79, heart rate 82, BMI 24. GENERAL: This is a 56-year-old mildly obese, white male, who is currently intubated and sedated. NEUROLOGIC: The pupils are dilated, but reactive to light. Noted for decorticate posturing. NECK: Trachea is midline. No thyromegaly or lymphadenopathy. No jugular venous distention. HEART: S1, S2. Heart sounds are normal. No murmurs. No rubs or clicks. Regular rate and rhythm with occasional ectopic beat. ABDOMEN: Slightly firm. Mildly distended with bowel sounds are present. EXTREMITIES: Without leg edema. SKIN: Mildly diaphoretic and pink. DIAGNOSIS STUDIES LABORATORY RESULTS: Glucose 328, BUN 17, creatinine 1.6, sodium 135, potassium 4.3, AST 52, ALT 46. Lactic acid is 4.6. Alcohol less than 5. CK-MB 5.1, troponin less than 0.05 to 0.17. White count 9.7, hemoglobin 14.4, hematocrit 42.7, platelet count is 225. Urine drug screen negative. IMAGING STUDIES: Chest x-ray shows no active disease. CARDIOVASCULAR STUDIES: EKG; normal sinus rhythm with a rate of 83 beats per minute with inferior Q-waves. Noted for old inferior infarct. IMPRESSION 1. Questionable anoxic brain image. 2. Status post resuscitated cardiac arrest after direct current shock for ventricular tachycardia. Unit #: [id number] #: [id number] Patient: VENKATA TAYLOR 3. Old inferior wall myocardial infarction. 4. Status post percutaneous coronary intervention and stents to the obtuse marginal branch, diagonal branch, and left anterior descending. 5. Chronic obstructive pulmonary disease. PLAN 1. The patient's cause of cardiac arrest was most likely from ventricular tachycardia. He has known coronary artery disease with old inferior wall myocardial infarction and multiple angioplasty and stent placements in the past. His troponin is mildly elevated. We will start the patient on anticoagulation with heparin and aspirin. 2. Control rhythm with IV metoprolol and amiodarone. 3. We will supplement magnesium. 4. Repeat cardiac enzymes and troponin to rule out myocardial infarction. EKG will also be repeated. 5. Obtain 2D echocardiogram to evaluate left ventricular systolic function. 6. Glucose is elevated. We will obtain hemoglobin A1c to rule out diabetes. 7. Lipid profile and TSH will be obtained. 8. The patient most likely would need further cardiac workup depending on his neurological status. 9. We will follow the patient with you. Thank you for allowing us to assist in this patient's care. Dictated by... Colleen ChengRWillieN. for Salty Lowry/amanda TD: 09/12/2016 01:53 JOB #: [id number] CC: August Brothers M.D. CONSULTATION REPORT X Scott Guardado APRN CONSULTATION REPORT
--- NOTE | ~2016-09-11 | EKG ---
PATIENT: VENKATA SHANNON UNIT #: [id number] Ventricular Rate: 83 BPM Atrial Rate: 83 BPM P-R Interval: 168 ms QRS Duration: 100 ms Q-T Interval: 402 ms QTC Calculation(Bezet): 472 ms P [place]: 54 degrees Calculated R [place]: 24 degrees Calculated T [place]: 74 degrees Diagnosis Line: Normal sinus rhythm Diagnosis Line: Inferior infarct , age undetermined Diagnosis Line: Abnormal ECG Diagnosis Line: No previous ECGs available Diagnosis Line: Confirmed by ASIM TEMPLETON MD ([id number]) on Diagnosis Line: 09/12/2016 11:46:18 AM INTERPRETING KATHE MOON
--- NOTE | ~2016-09-11 | EKG ---
PATIENT: VENKATA TAYLOR UNIT #: [id number] Ventricular Rate: 44 BPM Atrial Rate: 44 BPM P-R Interval: 174 ms QRS Duration: 104 ms Q-T Interval: 610 ms QTC Calculation(Bezet): 521 ms P [place]: 41 degrees Calculated R [place]: 35 degrees Calculated T [place]: 52 degrees Diagnosis Line: Marked sinus bradycardia Diagnosis Line: Prolonged QT Diagnosis Line: Abnormal ECG Diagnosis Line: Diagnosis Line: Confirmed by ASIM TEMPLETON MD ([id number]) on Diagnosis Line: 09/12/2016 12:06:08 PM INTERPRETING MD: SARAI
--- NOTE | ~2016-09-11 | OR ---
Unit #: [id number] #: [id number] Patient: VENKATA TAYLOR [id number] [address] [place], [place] [address] [id number] I MR#: [id number] NAME: VENKATA TAYLOR ROOM: [facility] Date of Procedure: 09/11/2016 Admission Date: 09/11/2016 Surgeon: Sly Minor M.D. : 1960 Attending Physician: Silvia Pruitt M.D. Primary Care Physician: Josias Toussaint M.D. PROCEDURE OPERATIVE NOTE PROCEDURE PERFORMED Left femoral arterial line placement with ultrasound guidance. PRE-OP DIAGNOSIS Status post cardiac arrest. INDICATION FOR PROCEDURE Hypothermia protocol. COMPLICATIONS None. DESCRIPTION OF THE PROCEDURE Informed consent was obtained from the after explaining the benefits and risks of this procedure. The patient was prepped and cleaned with chlorhexidine, and then a body drape was applied. The needle was inserted in the left femoral artery until blood flow was obtained. Then, a guidewire was inserted, and then the catheter was inserted over the guidewire. The guidewire was removed then. The catheter was hooked to arterial line setup and good wave obtained on the monitor. The patient tolerated his procedure well with no immediate complication. Dictated by... Salty Muñoz TD: 09/11/2016 16:09 JOB #: [id number] PROCEDURE OPERATIVE NOTE X SLY FLYNN MD PROCEDURE OPERATIVE NOTE
--- NOTE | ~2016-09-11 | CR72 ---
[facility] A Service of [facility] & [facility] RADIOLOGY TEXT RESULTS PATIENT: VENKATA TAYLOR LOCATION: [address] : [birth year] UNIT #: [id number] AGE: [address]: Reinaldo Carcamo MD SEX: M ORDER DR: [id number] [facility] [address] [facility]. [place], [place] [address] [id number] I MR#: [id number] Acc #: [id number] NAME: VENKATA TAYLOR : 1960 SEX: M STUDY DATE/TIME: 09/12/2016 6:19 UNIT: [facility] ROOM: [facility] STUDY DESCRIPTION: CR Chest Single View Portable Attending Physician: Silvia Pruitt M.D. Ordering Physician: Gonzalo Minor M.D. Primary Care Physician: Josias Toussaint M.D. MEDICAL IMAGING REPORT This report is preliminary unless electronic signature is present EXAM Portable chest 09/12/2016 INDICATION Status post cardiac arrest. Respiratory failure. FINDINGS AP portable chest is compared with 09/11/2016. ET tube and left IJ line remain in good position. The heart remains enlarged. Pulmonary edema is much improved. There are mild bilateral residual perihilar infiltrates. No pneumothorax is seen. Dictated by... Ken Gregg Jr., M.D. THIS IS AN ELECTRONICALLY VERIFIED REPORT Ken Gregg Jr., M.D. at 09/12/2016 3:50 PM TEX/kiko TD: 09/12/2016 09:16 JOB #: [id number] MEDICAL IMAGING REPORT COPY
--- NOTE | ~2016-09-11 | FU ---
[facility] Nutrition Therapy DATE: 09/15/16 Patient: VENKATA TAYLOR Physician: REBECA Address: [address] [place] [address] Room/Bed: [address], Zip: [place] [address] Admit Date: 09/11/16 Date of : 58 Height: 6 1 Weight: 185 84 NUTRITION MONITORING/FOLLOW-UP: Reason: Nutrition follow up Anthropometrics: Ht: 6'1" Adm wt: 86.5 kg BMI: 25.2 Wt 09/15: 84 kg Labs: BUN 8 Ca++ 8.1 Alb 3.2 AST 44 Meds: NaCl, phos-nak, mag-ox, bumex, KCl, novolog, lopressor, protonix I&O's: 3246/6096, last BM 09/14 Skin: no breakdown noted Edema: none noted Assessment: Chart reviewed, events noted. Pt was extubated yesterday and RN reports that he pulled out his DHT. Pt is [place] for cath procedure, and was NPO prior to that. BURGLAR ALARM INSPECTOR ordered for today. RN does not forsee that the pt will have any swallowing issues. Please see recommendations below. RD will follow up with the pt to assess PO intake if advanced to PO diet. Dx: Inadequate oral intake RT NPO for procedure, BURGLAR ALARM INSPECTOR to see AEB NPO status. Intervention: 1. Diet per BURGLAR ALARM INSPECTOR recommendations + HH Monitoring, Evaluation and Goals: IN PROGRESS, SOME MET 1. Oral intake; tolerate >50-75% of meals 2. Weight; prevent unintentional weight loss 3. Labs; WNL Recommendations: 1. Advance diet per BURGLAR ALARM INSPECTOR recommendations + heart healthy restriction. 2. Pt would benefit from heart healthy diet education once appropriate. Status: Pt is at mild-moderate nutritional risk. RD faiza follow up per protocol. Respectfully, [facility] Nutrition Therapy DATE: 09/15/16 Patient: VENKATA TAYLOR Physician: REBECA Address: [address] [place] [address] Room/Bed: [address], Zip: [place] [address] Admit Date: 09/11/16 Date of : 58 Height: 6 1 Weight: [address], LD [employer] and Nutrition[facility] Services [facility] cc: client file
--- NOTE | ~2016-09-11 | CR72 ---
[facility] A Service of [facility] & [facility] RADIOLOGY TEXT RESULTS PATIENT: VENKATA TAYLOR LOCATION: [address] : [birth year] UNIT #: [id number] AGE: [address]: Silvia Pruitt MD SEX: M ORDER DR: [id number] [facility] [address] [place], [place] [address] [id number] I MR#: [id number] Acc #: [id number] NAME: VENKATA TAYLOR : 1960 SEX: M STUDY DATE/TIME: 09/11/2016 12:40 UNIT: [facility] ROOM: [facility] STUDY DESCRIPTION: CR Chest Single View Portable Attending Physician: Silvia Pruitt M.D. Ordering Physician: Gonzalo Minor M.D. Primary Care Physician: Josias Toussaint M.D. MEDICAL IMAGING REPORT This report is preliminary unless electronic signature is present EXAM Portable chest, 09/11/2016. HISTORY Line placement today. Patient is status post full arrest today. FINDINGS AP portable chest is compared with earlier today. Endotracheal tube in mid trachea. New left IJ line tip in the mid superior vena cava. No pneumothorax is seen. The heart size is stable. There are worsening bilateral infiltrates, which may reflect edema and/or pneumonia. They are particularly evident in the left upper lobe. Dictated by... Ken Gregg Jr., M.D. THIS IS AN ELECTRONICALLY VERIFIED REPORT Ken Gregg Jr., M.D. at 09/11/2016 5:00 PM TEX/marychuy TD: 09/11/2016 14:28 JOB #: [id number] MEDICAL IMAGING REPORT COPY
--- NOTE | ~2016-09-11 | EKG ---
PATIENT: VENKATA TAYLOR UNIT #: [id number] Ventricular Rate: 91 BPM Atrial Rate: 91 BPM P-R Interval: 144 ms QRS Duration: 82 ms Q-T Interval: 374 ms QTC Calculation(Bezet): 460 ms P [place]: 45 degrees Calculated R [place]: 26 degrees Calculated T [place]: 68 degrees Diagnosis Line: Normal sinus rhythm Diagnosis Line: Possible Inferior infarct (cited on or before Diagnosis Line: 13-SEP-2016) Diagnosis Line: Abnormal ECG Diagnosis Line: When compared with ECG of 12-SEP-2016 06:48, Diagnosis Line: Vent. rate has increased BY 47 BPM Diagnosis Line: ST no longer elevated in Anterior leads Diagnosis Line: Nonspecific T wave abnormality now evident in Diagnosis Line: Anterolateral leads Diagnosis Line: QT has shortened Diagnosis Line: MUJICA waves of hypothermia have resolved Diagnosis Line: Confirmed by RICARDO SANTOS MD ([id number]) on 09/13/2016 Diagnosis Line: 7:41:49 PM INTERPRETING MD: TOM CARRILLO
[2016-09-11 08:07] LABS: BASOPHIL% 0.4 % (0-2.5); EOSINOPHIL# 0.2 X10e3 (0-0.7); EOSINOPHIL% 1.7 % (0.0-7.0); HEMATOCRIT 42.7 % (38.0-50.0); HEMOGLOBIN 14.4 gm/dL (13.0-16.0); LYMPHOCYTE# 4.7 X10e3 (1.0-3.5); LYMPHOCYTE% 47.9 % (17.0-45.0); MEAN CELL VOLUME 95.8 FL (83-96); MEAN CORPUSCULAR HEMOGLOBIN 32.4 PG (28-34); MEAN CORPUSCULAR HGB CONC 33.8 g/dL (30-36); MEAN PLATELET VOLUME 8.8 FL (6.5-11.5); MONOCYTE# 0.6 X10e3 (0-1.0); MONOCYTE% 6.2 % (3.0-12.0); NEUTROPHIL# 4.3 X10e3 (1.5-7.1); NEUTROPHIL% 43.8 % (40-75); PLATELET COUNT 225 X10e3 (140-420); RED BLOOD COUNT 4.46 X10e (3.90-5.60); RED CELL DISTRIBUTION WIDTH 13.2 % (11.0-15.5); WHITE BLOOD COUNT 9.7 X10e3 (4.0-10.5)
[2016-09-11 08:10] LABS: DIFF IND NO
[2016-09-11 08:15] LABS: POC - TROPONIN <0.05 ng/mL (<=0.05)
[2016-09-11 08:22] LABS: PARTIAL THROMBOPLASTIN TIME 23.6 SECONDS (23.5-31.3); PROTHROMBIN TIME (PATIENT) 10.3 SECONDS (9.6-11.5)
[2016-09-11 08:25] LABS: URINE APPEARANCE TURBID; URINE BILIRUBIN NEG (NEG); URINE BLOOD 2+ (NEG); URINE COLOR DK YELLOW; URINE GLUCOSE 250 MG/DL (NEG); URINE KETONE TRACE (NEG); URINE LEUKOCYTE ESTERASE NEG (NEG); URINE NITRATE NEG (NEG); URINE PH 6.5 (5-8); URINE PROTEIN 3+ (NEG); URINE SPECIFIC GRAVITY 1.028 (1.003-1.035)
[2016-09-11 08:29] LABS: CULTURE INDICATED? YES; URBCS1 AUWI 25-50 /[HPF] (0-2); URINE BACTERIA AUWI 2+ (NEGATIVE); URINE SQUAMOUS EPITHELIAL CELL OCC /[HPF]; UWBCS1 AUWI INNUM (0-5)
[2016-09-11 08:36] LABS: ACETAMINOPHEN <10 ug/mL; ALCOHOL BLOOD <5 mg/dL (0); ALKALINE PHOSPHATASE 58 U/L (32-92); ALT (SGPT) 46 U/L (10-40); AST (SGOT) 52 U/L (10-42); BILIRUBIN, DIRECT 0.1 mg/dL (0.0-0.2); BILIRUBIN,INDIRECT 0.6 mg/dL (0.0-0.9); BILIRUBIN,TOTAL 0.7 mg/dL (0.2-2.0); BLOOD UREA NITROGEN 17 mg/dL (9-23); BUN/CREATININE RATIO 10.62; CALCIUM SERUM 8.2 mg/dL (8.4-10.2); CARBON DIOXIDE 12 mmol/L (22-31); CHLORIDE 104 mmol/L (100-111); CREATININE SERUM 1.6 mg/dL (0.6-1.4); GLOM FILT RATE Estimated 47.6 mL/min (>60); GLUCOSE FASTING 328 mg/dL (70-110); POTASSIUM 4.3 mmol/L (3.5-5.1); PROTEIN TOTAL SERUM 7.2 g/dL (6.0-8.3); SALICYLATE <4.0 mg/dL; SODIUM 135 mmol/L (135-145)
[2016-09-11 08:52] LABS: AMPHETAMINE NEG (NEG); BARBITURATES NEG (NEG); BENZODIAZEPINES NEG (NEG); COCAINE NEG (NEG); MARIJUANA NEG (NEG); OPIATES NEG (NEG); TRICYCLIC ANTIDEPRESSANTS NEG (NEG); U METHADONE NEG (NEG)
[2016-09-11 08:55] LABS: URINE SPERM PRESENT
[2016-09-11 10:09] LABS: ARTERIAL BLD GAS O2 SATURATION 97.6 % (90.0-100.0); ARTERIAL BLOOD GAS ALLEN TEST POS; ARTERIAL BLOOD GAS ART SITE RIGHT RADIAL; ARTERIAL BLOOD GAS CARBOXY HB 0.9 %sat (0.0-9.0); ARTERIAL BLOOD GAS DELIVERY VENT; ARTERIAL BLOOD GAS HCO3 15.8 mmol/L; ARTERIAL BLOOD GAS PCO2 38.6 mmHg (35.0-45.0); ARTERIAL BLOOD GAS VENT MODE A/C; ARTERIAL BLOOD GAS pH 7.221 (7.350-7.450); ARTERIAL DRAW? YES
[2016-09-11] MEDS ORDERED: METOPROLOL SUCC50 MG PO (10:50)
[2016-09-11] MEDS ORDERED: ASPIRIN81 M2 PO (10:50)
[2016-09-11] MEDS ORDERED: CLOPIDOGREL75 MG PO (10:50)
[2016-09-11] MEDS ORDERED: ATORVASTATIN CA80 MG PO (10:50)
[2016-09-11 11:02] LABS: POC - CKMB 5.1 ng/mL (0.0-7.9); POC - TROPONIN 0.17 ng/mL (<=0.05)
[2016-09-11 15:40] LABS: CHOLESTEROL 180 mg/dL (0-200); HDL CHOLESTEROL 33 mg/dL (29-75); LDL CHOLESTEROL 88 mg/dL (-130); LDL/HDL RATIO 3 RATIO (0-4); TRIGLYCERIDES 294 mg/dL (10-160)
[2016-09-11 16:42] LABS: ARTERIAL BLD GAS O2 SATURATION 97.7 % (90.0-100.0); ARTERIAL BLOOD GAS CARBOXY HB 0.2 %sat (0.0-9.0); ARTERIAL BLOOD GAS HCO3 15.5 mmol/L; ARTERIAL BLOOD GAS PCO2 32.9 mmHg (35.0-45.0); ARTERIAL BLOOD GAS pH 7.282 (7.350-7.450)
[2016-09-11 16:43] LABS: ARTERIAL BLOOD GAS ALLEN TEST NORMAL; ARTERIAL BLOOD GAS ART SITE ARTERIAL LINE; ARTERIAL DRAW? YES
[2016-09-11 16:44] LABS: ARTERIAL BLOOD GAS DELIVERY VENT; ARTERIAL BLOOD GAS VENT MODE AC
[2016-09-11 17:12] LABS: %MB 2.4 % (0.0-4.0); MB 28.2 ng/ml
[2016-09-11 17:25] LABS: BASOPHIL% 0.1 % (0-2.5); HEMATOCRIT 39.5 % (38.0-50.0); HEMOGLOBIN 13.3 gm/dL (13.0-16.0); LYMPHOCYTE# 0.8 X10e3 (1.0-3.5); LYMPHOCYTE% 6.1 % (17.0-45.0); MEAN CELL VOLUME 94.3 FL (83-96); MEAN CORPUSCULAR HEMOGLOBIN 31.8 PG (28-34); MEAN CORPUSCULAR HGB CONC 33.7 g/dL (30-36); MEAN PLATELET VOLUME 8.7 FL (6.5-11.5); MONOCYTE# 1.1 X10e3 (0-1.0); MONOCYTE% 8.6 % (3.0-12.0); NEUTROPHIL# 11.3 X10e3 (1.5-7.1); NEUTROPHIL% 85.2 % (40-75); PLATELET COUNT 172 X10e3 (140-420); RED BLOOD COUNT 4.19 X10e (3.90-5.60); RED CELL DISTRIBUTION WIDTH 13.1 % (11.0-15.5); WHITE BLOOD COUNT 13.2 X10e3 (4.0-10.5)
[2016-09-11 17:26] LABS: DIFF IND NO
[2016-09-11 17:47] LABS: BLOOD UREA NITROGEN 17 mg/dL (9-23); CARBON DIOXIDE 15 mmol/L (22-31); CHLORIDE 113 mmol/L (100-111); CK TOTAL 1452 IU/L (36-174); GLOM FILT RATE Estimated ABOVE60 mL/min (>60); GLUCOSE FASTING 143 mg/dL (70-110); MAGNESIUM 2.1 mg/dL (1.6-3.0); PHOSPHOROUS 2.2 mg/dL (2.5-4.6); POTASSIUM 4.6 mmol/L (3.5-5.1); SODIUM 139 mmol/L (135-145)
[2016-09-11 18:08] LABS: %MB 2.2 % (0.0-4.0); MB 32.2 ng/ml
[2016-09-11 18:44] LABS: INR 1.1; PROTHROMBIN TIME (PATIENT) 11.1 SECONDS (9.6-11.5)
[2016-09-11 21:46] LABS: %MB 2.5 % (0.0-4.0); MB 36.6 ng/ml
[2016-09-11 23:26] LABS: BASOPHIL% 0.4 % (0-2.5); DIFF IND NO; HEMATOCRIT 39.7 % (38.0-50.0); HEMOGLOBIN 13.6 gm/dL (13.0-16.0); LYMPHOCYTE# 1.4 X10e3 (1.0-3.5); LYMPHOCYTE% 12.6 % (17.0-45.0); MEAN CELL VOLUME 94.4 FL (83-96); MEAN CORPUSCULAR HEMOGLOBIN 32.4 PG (28-34); MEAN CORPUSCULAR HGB CONC 34.3 g/dL (30-36); MEAN PLATELET VOLUME 8.6 FL (6.5-11.5); MONOCYTE# 1.1 X10e3 (0-1.0); MONOCYTE% 10.3 % (3.0-12.0); NEUTROPHIL# 8.3 X10e3 (1.5-7.1); NEUTROPHIL% 76.7 % (40-75); PLATELET COUNT 155 X10e3 (140-420); RED CELL DISTRIBUTION WIDTH 13.3 % (11.0-15.5); WHITE BLOOD COUNT 10.8 X10e3 (4.0-10.5)
[2016-09-11 23:37] LABS: PROTHROMBIN TIME (PATIENT) 10.7 SECONDS (9.6-11.5)
[2016-09-11 23:57] LABS: BLOOD UREA NITROGEN 13 mg/dL (9-23); BUN/CREATININE RATIO 16.25; CARBON DIOXIDE 19 mmol/L (22-31); CHLORIDE 117 mmol/L (100-111); CK TOTAL 1613 IU/L (36-174); CREATININE SERUM 0.8 mg/dL (0.6-1.4); GLOM FILT RATE Estimated ABOVE60 mL/min (>60); GLUCOSE FASTING 133 mg/dL (70-110); MAGNESIUM 2.2 mg/dL (1.6-3.0); PHOSPHOROUS 2.2 mg/dL (2.5-4.6); POTASSIUM 3.9 mmol/L (3.5-5.1); SODIUM 138 mmol/L (135-145)
[2016-09-12 00:17] LABS: %MB 2.6 % (0.0-4.0); MB 41.3 ng/ml
[2016-09-12 05:15] LABS: ARTERIAL BLOOD GAS HCO3 19.7 mmol/L; ARTERIAL BLOOD GAS MET HB 0.8 %sat (0.0-2.0); ARTERIAL BLOOD GAS PCO2 31.8 mmHg (35.0-45.0)
[2016-09-12 05:23] LABS: BASOPHIL% 0.2 % (0-2.5); EOSINOPHIL% 0.2 % (0.0-7.0); HEMATOCRIT 37.3 % (38.0-50.0); LYMPHOCYTE# 1.3 X10e3 (1.0-3.5); LYMPHOCYTE% 15.3 % (17.0-45.0); MEAN CORPUSCULAR HEMOGLOBIN 32.5 PG (28-34); MEAN CORPUSCULAR HGB CONC 34.9 g/dL (30-36); MEAN PLATELET VOLUME 8.6 FL (6.5-11.5); MONOCYTE# 0.9 X10e3 (0-1.0); MONOCYTE% 10.3 % (3.0-12.0); NEUTROPHIL# 6.2 X10e3 (1.5-7.1); PLATELET COUNT 148 X10e3 (140-420); RED BLOOD COUNT 4.01 X10e (3.90-5.60); RED CELL DISTRIBUTION WIDTH 13.5 % (11.0-15.5); WHITE BLOOD COUNT 8.4 X10e3 (4.0-10.5)
[2016-09-12 05:31] LABS: ARTERIAL BLOOD GAS ALLEN TEST NORMAL; ARTERIAL DRAW? YES
[2016-09-12 05:32] LABS: ARTERIAL BLOOD GAS ART SITE ARTERIAL LINE; ARTERIAL BLOOD GAS VENT MODE AC
[2016-09-12 05:37] LABS: PROTHROMBIN TIME (PATIENT) 10.7 SECONDS (9.6-11.5)
[2016-09-12 05:42] LABS: DIFF IND NO
[2016-09-12 06:23] LABS: BLOOD UREA NITROGEN 12 mg/dL (9-23); CALCIUM SERUM 7.4 mg/dL (8.4-10.2); CARBON DIOXIDE 18 mmol/L (22-31); CHLORIDE 113 mmol/L (100-111); CPK (CREATINE PHOSPHOKINASE) 1540 IU/L (36-174); CREATININE SERUM 0.6 mg/dL (0.6-1.4); GLOM FILT RATE Estimated ABOVE60 mL/min (>60); GLUCOSE FASTING 127 mg/dL (70-110); POTASSIUM 3.6 mmol/L (3.5-5.1); SODIUM 141 mmol/L (135-145)
[2016-09-12 10:36] LABS: BASOPHIL% 0.3 % (0-2.5); EOSINOPHIL% 0.3 % (0.0-7.0); HEMATOCRIT 38.4 % (38.0-50.0); HEMOGLOBIN 13.2 gm/dL (13.0-16.0); LYMPHOCYTE# 1.3 X10e3 (1.0-3.5); MEAN CELL VOLUME 93.9 FL (83-96); MEAN CORPUSCULAR HEMOGLOBIN 32.3 PG (28-34); MEAN CORPUSCULAR HGB CONC 34.4 g/dL (30-36); MEAN PLATELET VOLUME 8.8 FL (6.5-11.5); MONOCYTE# 0.8 X10e3 (0-1.0); MONOCYTE% 8.4 % (3.0-12.0); NEUTROPHIL# 7.2 X10e3 (1.5-7.1); PLATELET COUNT 159 X10e3 (140-420); RED BLOOD COUNT 4.09 X10e (3.90-5.60); RED CELL DISTRIBUTION WIDTH 13.2 % (11.0-15.5); WHITE BLOOD COUNT 9.3 X10e3 (4.0-10.5)
[2016-09-12 10:38] LABS: DIFF IND NO
[2016-09-12 10:49] LABS: PROTHROMBIN TIME (PATIENT) 10.7 SECONDS (9.6-11.5)
[2016-09-12 11:38] LABS: BLOOD UREA NITROGEN 11 mg/dL (9-23); BUN/CREATININE RATIO 15.71; CALCIUM SERUM 7.2 mg/dL (8.4-10.2); CARBON DIOXIDE 20 mmol/L (22-31); CHLORIDE 113 mmol/L (100-111); CPK (CREATINE PHOSPHOKINASE) 1665 IU/L (36-174); CREATININE SERUM 0.7 mg/dL (0.6-1.4); GLOM FILT RATE Estimated ABOVE60 mL/min (>60); GLUCOSE FASTING 113 mg/dL (70-110); PHOSPHOROUS 1.8 mg/dL (2.5-4.6); POTASSIUM 3.3 mmol/L (3.5-5.1); SODIUM 141 mmol/L (135-145)
[2016-09-12 19:18] LABS: BASOPHIL% 0.4 % (0-2.5); EOSINOPHIL% 0.2 % (0.0-7.0); HEMATOCRIT 35.4 % (38.0-50.0); HEMOGLOBIN 12.2 gm/dL (13.0-16.0); LYMPHOCYTE# 1.2 X10e3 (1.0-3.5); LYMPHOCYTE% 14.3 % (17.0-45.0); MEAN CELL VOLUME 93.7 FL (83-96); MEAN CORPUSCULAR HEMOGLOBIN 32.3 PG (28-34); MEAN CORPUSCULAR HGB CONC 34.5 g/dL (30-36); MEAN PLATELET VOLUME 8.8 FL (6.5-11.5); MONOCYTE# 0.6 X10e3 (0-1.0); MONOCYTE% 7.3 % (3.0-12.0); NEUTROPHIL# 6.6 X10e3 (1.5-7.1); NEUTROPHIL% 77.8 % (40-75); PLATELET COUNT 162 X10e3 (140-420); RED BLOOD COUNT 3.77 X10e (3.90-5.60); RED CELL DISTRIBUTION WIDTH 13.3 % (11.0-15.5); WHITE BLOOD COUNT 8.4 X10e3 (4.0-10.5)
[2016-09-12 19:19] LABS: DIFF IND NO
[2016-09-12 19:33] LABS: PROTHROMBIN TIME (PATIENT) 10.7 SECONDS (9.6-11.5)
[2016-09-12 19:58] LABS: BLOOD UREA NITROGEN 10 mg/dL (9-23); CARBON DIOXIDE 20 mmol/L (22-31); CHLORIDE 118 mmol/L (100-111); CPK (CREATINE PHOSPHOKINASE) 1515 IU/L (36-174); CREATININE SERUM 0.8 mg/dL (0.6-1.4); GLOM FILT RATE Estimated ABOVE60 mL/min (>60); GLUCOSE FASTING 94 mg/dL (70-110); MAGNESIUM 1.9 mg/dL (1.6-3.0); PHOSPHOROUS 1.6 mg/dL (2.5-4.6); POTASSIUM 3.6 mmol/L (3.5-5.1); SODIUM 139 mmol/L (135-145)
[2016-09-13 05:12] LABS: ARTERIAL BLD GAS O2 SATURATION 97.9 % (90.0-100.0); ARTERIAL BLOOD GAS CARBOXY HB 0.2 %sat (0.0-9.0); ARTERIAL BLOOD GAS HCO3 21.3 mmol/L; ARTERIAL BLOOD GAS MET HB 1.1 %sat (0.0-2.0); ARTERIAL BLOOD GAS PCO2 33.7 mmHg (35.0-45.0); ARTERIAL BLOOD GAS pH 7.409 (7.350-7.450)
[2016-09-13 05:13] LABS: HEMATOCRIT 33.2 % (38.0-50.0); HEMOGLOBIN 11.6 gm/dL (13.0-16.0); MEAN CELL VOLUME 94.8 FL (83-96); MEAN CORPUSCULAR HGB CONC 34.8 g/dL (30-36); MEAN PLATELET VOLUME 8.7 FL (6.5-11.5); RED BLOOD COUNT 3.51 X10e (3.90-5.60); RED CELL DISTRIBUTION WIDTH 13.6 % (11.0-15.5); WHITE BLOOD COUNT 8.1 X10e3 (4.0-10.5)
[2016-09-13 05:24] LABS: ARTERIAL BLOOD GAS ART SITE ARTERIAL LINE; ARTERIAL BLOOD GAS VENT MODE AC
[2016-09-13 05:28] LABS: PARTIAL THROMBOPLASTIN TIME 39.5 SECONDS (23.5-31.3); PROTHROMBIN TIME (PATIENT) 10.7 SECONDS (9.6-11.5)
[2016-09-13 06:35] LABS: ALBUMIN SERUM 2.8 g/dL (3.5-5.0); ALKALINE PHOSPHATASE 36 U/L (32-92); ALT (SGPT) 34 U/L (10-40); AST (SGOT) 45 U/L (10-42); BILIRUBIN,TOTAL 0.3 mg/dL (0.2-2.0); BLOOD UREA NITROGEN 10 mg/dL (9-23); BUN/CREATININE RATIO 8.33; CARBON DIOXIDE 20 mmol/L (22-31); CHLORIDE 115 mmol/L (100-111); CK TOTAL 1437 IU/L (36-174); CREATININE SERUM 1.2 mg/dL (0.6-1.4); GLOM FILT RATE Estimated ABOVE60 mL/min (>60); GLUCOSE FASTING 90 mg/dL (70-110); MAGNESIUM 1.7 mg/dL (1.6-3.0); PHOSPHOROUS 1.9 mg/dL (2.5-4.6); POTASSIUM 3.5 mmol/L (3.5-5.1); SODIUM 143 mmol/L (135-145)
[2016-09-13 06:54] LABS: %MB 1.6 % (0.0-4.0); MB 22.7 ng/ml
[2016-09-14 03:23] LABS: BASOPHIL% 0.6 % (0-2.5); EOSINOPHIL# 0.1 X10e3 (0-0.7); HEMATOCRIT 29.8 % (38.0-50.0); HEMOGLOBIN 10.6 gm/dL (13.0-16.0); LYMPHOCYTE% 31.4 % (17.0-45.0); MEAN CELL VOLUME 93.7 FL (83-96); MEAN CORPUSCULAR HEMOGLOBIN 33.3 PG (28-34); MEAN CORPUSCULAR HGB CONC 35.5 g/dL (30-36); MEAN PLATELET VOLUME 8.5 FL (6.5-11.5); MONOCYTE# 0.6 X10e3 (0-1.0); MONOCYTE% 9.5 % (3.0-12.0); NEUTROPHIL# 3.7 X10e3 (1.5-7.1); NEUTROPHIL% 57.5 % (40-75); PLATELET COUNT 123 X10e3 (140-420); RED BLOOD COUNT 3.18 X10e (3.90-5.60); RED CELL DISTRIBUTION WIDTH 13.1 % (11.0-15.5); WHITE BLOOD COUNT 6.5 X10e3 (4.0-10.5)
[2016-09-14 03:24] LABS: DIFF IND NO
[2016-09-14 04:30] LABS: ARTERIAL BLD GAS O2 SATURATION 97.7 % (90.0-100.0); ARTERIAL BLOOD GAS CARBOXY HB 0.2 %sat (0.0-9.0); ARTERIAL BLOOD GAS HCO3 23.3 mmol/L; ARTERIAL BLOOD GAS MET HB 1.3 %sat (0.0-2.0); ARTERIAL BLOOD GAS PCO2 31.2 mmHg (35.0-45.0); ARTERIAL BLOOD GAS pH 7.482 (7.350-7.450)
[2016-09-14 04:39] LABS: ARTERIAL BLOOD GAS ART SITE ARTERIAL LINE; ARTERIAL BLOOD GAS DELIVERY VENT; ARTERIAL BLOOD GAS VENT MODE AC; ARTERIAL DRAW? YES
[2016-09-14 04:58] LABS: ALBUMIN SERUM 2.7 g/dL (3.5-5.0); ALKALINE PHOSPHATASE 39 U/L (32-92); ALT (SGPT) 31 U/L (10-40); AST (SGOT) 38 U/L (10-42); BILIRUBIN,TOTAL 0.7 mg/dL (0.2-2.0); BLOOD UREA NITROGEN 9 mg/dL (9-23); BUN/CREATININE RATIO 8.18; CALCIUM SERUM 7.5 mg/dL (8.4-10.2); CARBON DIOXIDE 23 mmol/L (22-31); CHLORIDE 110 mmol/L (100-111); CPK (CREATINE PHOSPHOKINASE) 1085 IU/L (36-174); CREATININE SERUM 1.1 mg/dL (0.6-1.4); GLOM FILT RATE Estimated ABOVE60 mL/min (>60); GLUCOSE FASTING 102 mg/dL (70-110); MAGNESIUM 1.6 mg/dL (1.6-3.0); PHOSPHOROUS 2.2 mg/dL (2.5-4.6); POTASSIUM 3.3 mmol/L (3.5-5.1); SODIUM 142 mmol/L (135-145)
[2016-09-15 05:23] LABS: BASOPHIL% 0.6 % (0-2.5); EOSINOPHIL# 0.1 X10e3 (0-0.7); EOSINOPHIL% 1.4 % (0.0-7.0); HEMATOCRIT 31.2 % (38.0-50.0); HEMOGLOBIN 10.7 gm/dL (13.0-16.0); LYMPHOCYTE# 1.8 X10e3 (1.0-3.5); LYMPHOCYTE% 28.9 % (17.0-45.0); MEAN CELL VOLUME 93.9 FL (83-96); MEAN CORPUSCULAR HEMOGLOBIN 32.3 PG (28-34); MEAN CORPUSCULAR HGB CONC 34.4 g/dL (30-36); MEAN PLATELET VOLUME 8.5 FL (6.5-11.5); MONOCYTE# 0.6 X10e3 (0-1.0); MONOCYTE% 9.4 % (3.0-12.0); NEUTROPHIL# 3.8 X10e3 (1.5-7.1); NEUTROPHIL% 59.7 % (40-75); PLATELET COUNT 134 X10e3 (140-420); RED BLOOD COUNT 3.32 X10e (3.90-5.60); RED CELL DISTRIBUTION WIDTH 13.2 % (11.0-15.5); WHITE BLOOD COUNT 6.3 X10e3 (4.0-10.5)
[2016-09-15 05:26] LABS: DIFF IND NO
[2016-09-15 05:53] LABS: PARTIAL THROMBOPLASTIN TIME 54.1 SECONDS (23.5-31.3); PROTHROMBIN TIME (PATIENT) 10.5 SECONDS (9.6-11.5)
[2016-09-15 06:14] LABS: ALBUMIN SERUM 3.2 g/dL (3.5-5.0); ALKALINE PHOSPHATASE 38 U/L (32-92); ALT (SGPT) 40 U/L (10-40); AST (SGOT) 44 U/L (10-42); BILIRUBIN,TOTAL 0.8 mg/dL (0.2-2.0); BLOOD UREA NITROGEN 8 mg/dL (9-23); BUN/CREATININE RATIO 8.88; CALCIUM SERUM 8.1 mg/dL (8.4-10.2); CARBON DIOXIDE 24 mmol/L (22-31); CHLORIDE 107 mmol/L (100-111); CREATININE SERUM 0.9 mg/dL (0.6-1.4); GLOM FILT RATE Estimated ABOVE60 mL/min (>60); GLUCOSE FASTING 96 mg/dL (70-110); POTASSIUM 3.9 mmol/L (3.5-5.1); PROTEIN TOTAL SERUM 6.1 g/dL (6.0-8.3); SODIUM 141 mmol/L (135-145)
[2016-09-15 21:35] LABS: ANGIO %MB 3.7 % (0.0-4.0); ANGIO MB 22.5 ng/ml
[2016-09-16 04:52] LABS: BASOPHIL% 0.4 % (0-2.5); EOSINOPHIL# 0.1 X10e3 (0-0.7); EOSINOPHIL% 2.4 % (0.0-7.0); HEMATOCRIT 29.3 % (38.0-50.0); HEMOGLOBIN 10.2 gm/dL (13.0-16.0); LYMPHOCYTE# 1.5 X10e3 (1.0-3.5); LYMPHOCYTE% 24.6 % (17.0-45.0); MEAN CELL VOLUME 93.9 FL (83-96); MEAN CORPUSCULAR HEMOGLOBIN 32.8 PG (28-34); MEAN CORPUSCULAR HGB CONC 34.9 g/dL (30-36); MEAN PLATELET VOLUME 8.2 FL (6.5-11.5); MONOCYTE# 0.7 X10e3 (0-1.0); MONOCYTE% 12.3 % (3.0-12.0); NEUTROPHIL# 3.6 X10e3 (1.5-7.1); NEUTROPHIL% 60.3 % (40-75); PLATELET COUNT 141 X10e3 (140-420); RED BLOOD COUNT 3.12 X10e (3.90-5.60); RED CELL DISTRIBUTION WIDTH 12.9 % (11.0-15.5)
[2016-09-16 04:57] LABS: DIFF IND NO
[2016-09-16 05:54] LABS: ANGIO %MB 4.9 % (0.0-4.0); ANGIO MB 31.7 ng/ml
[2016-09-16 07:16] LABS: BLOOD UREA NITROGEN 13 mg/dL (9-23); BUN/CREATININE RATIO 11.81; CALCIUM SERUM 8.5 mg/dL (8.4-10.2); CARBON DIOXIDE 26 mmol/L (22-31); CHLORIDE 106 mmol/L (100-111); CHOLESTEROL 138 mg/dL (0-200); CREATININE SERUM 1.1 mg/dL (0.6-1.4); GLOM FILT RATE Estimated ABOVE60 mL/min (>60); GLUCOSE FASTING 95 mg/dL (70-110); HDL CHOLESTEROL 34 mg/dL (29-75); LDL CHOLESTEROL 71 mg/dL (-130); LDL/HDL RATIO 2 RATIO (0-4); POTASSIUM 3.8 mmol/L (3.5-5.1); SODIUM 140 mmol/L (135-145); TRIGLYCERIDES 164 mg/dL (10-160)
[2016-09-17 06:41] LABS: BLOOD UREA NITROGEN 15 mg/dL (9-23); CALCIUM SERUM 8.6 mg/dL (8.4-10.2); CARBON DIOXIDE 28 mmol/L (22-31); CHLORIDE 103 mmol/L (100-111); GLOM FILT RATE Estimated ABOVE60 mL/min (>60); GLUCOSE FASTING 95 mg/dL (70-110); MAGNESIUM 1.7 mg/dL (1.6-3.0); POTASSIUM 3.9 mmol/L (3.5-5.1); SODIUM 139 mmol/L (135-145)
[2016-09-18 06:40] LABS: BASOPHIL% 0.5 % (0-2.5); EOSINOPHIL# 0.2 X10e3 (0-0.7); EOSINOPHIL% 3.4 % (0.0-7.0); HEMATOCRIT 32.7 % (38.0-50.0); HEMOGLOBIN 11.2 gm/dL (13.0-16.0); LYMPHOCYTE# 1.4 X10e3 (1.0-3.5); LYMPHOCYTE% 22.4 % (17.0-45.0); MEAN CELL VOLUME 93.1 FL (83-96); MEAN CORPUSCULAR HEMOGLOBIN 31.8 PG (28-34); MEAN CORPUSCULAR HGB CONC 34.2 g/dL (30-36); MEAN PLATELET VOLUME 8.3 FL (6.5-11.5); MONOCYTE# 0.8 X10e3 (0-1.0); MONOCYTE% 13.6 % (3.0-12.0); NEUTROPHIL# 3.6 X10e3 (1.5-7.1); NEUTROPHIL% 60.1 % (40-75); PLATELET COUNT 209 X10e3 (140-420); RED BLOOD COUNT 3.51 X10e (3.90-5.60); RED CELL DISTRIBUTION WIDTH 13.1 % (11.0-15.5); WHITE BLOOD COUNT 6.1 X10e3 (4.0-10.5)
[2016-09-18 06:52] LABS: DIFF IND NO
[2016-09-18 07:17] LABS: BLOOD UREA NITROGEN 17 mg/dL (9-23); BUN/CREATININE RATIO 15.45; CALCIUM SERUM 8.6 mg/dL (8.4-10.2); CARBON DIOXIDE 25 mmol/L (22-31); CHLORIDE 99 mmol/L (100-111); CREATININE SERUM 1.1 mg/dL (0.6-1.4); GLOM FILT RATE Estimated ABOVE60 mL/min (>60); GLUCOSE FASTING 100 mg/dL (70-110); POTASSIUM 3.4 mmol/L (3.5-5.1); SODIUM 133 mmol/L (135-145)
[2016-09-19 05:22] LABS: BASOPHIL% 0.6 % (0-2.5); EOSINOPHIL# 0.2 X10e3 (0-0.7); EOSINOPHIL% 2.7 % (0.0-7.0); HEMOGLOBIN 11.8 gm/dL (13.0-16.0); LYMPHOCYTE# 1.4 X10e3 (1.0-3.5); LYMPHOCYTE% 21.6 % (17.0-45.0); MEAN CELL VOLUME 93.4 FL (83-96); MEAN CORPUSCULAR HEMOGLOBIN 32.4 PG (28-34); MEAN CORPUSCULAR HGB CONC 34.7 g/dL (30-36); MONOCYTE# 0.8 X10e3 (0-1.0); MONOCYTE% 12.4 % (3.0-12.0); NEUTROPHIL# 4.1 X10e3 (1.5-7.1); NEUTROPHIL% 62.7 % (40-75); PLATELET COUNT 263 X10e3 (140-420); RED BLOOD COUNT 3.64 X10e (3.90-5.60); RED CELL DISTRIBUTION WIDTH 13.3 % (11.0-15.5); WHITE BLOOD COUNT 6.6 X10e3 (4.0-10.5)
[2016-09-19 05:31] LABS: DIFF IND NO
[2016-09-19 06:17] LABS: BLOOD UREA NITROGEN 24 mg/dL (9-23); CALCIUM SERUM 9.2 mg/dL (8.4-10.2); CARBON DIOXIDE 26 mmol/L (22-31); CHLORIDE 103 mmol/L (100-111); CREATININE SERUM 1.2 mg/dL (0.6-1.4); GLOM FILT RATE Estimated ABOVE60 mL/min (>60); GLUCOSE FASTING 105 mg/dL (70-110); MAGNESIUM 2.2 mg/dL (1.6-3.0); POTASSIUM 4.5 mmol/L (3.5-5.1); SODIUM 140 mmol/L (135-145)
[2016-09-19] MEDS ORDERED: METOPROLOL TAR25 MG PO (14:36)
[2016-09-19] MEDS ORDERED: LIPITOR20 MG PO (14:37)
[2016-09-19] MEDS ORDERED: AMIODARONE PO (14:40)
[2016-09-19] MEDS ORDERED: BRILINTA90 MG PO (14:41)
[2016-09-19] MEDS ORDERED: KCL PO (14:42)
[2016-09-19] MEDS ORDERED: ZESTRIL2.5 MG PO (14:43)
[2016-09-19] MEDS ORDERED: NITROSTAT0.4 MG SL (14:44)
[2016-09-19] MEDS ORDERED: LASIX PO (14:45)
[2016-09-19] MEDS ORDERED: ALDACTONE25 MG PO (14:45)
[2016-09-19] MEDS ORDERED: MAGNESIUM400 MG PO (15:07)
[2016-09-19] MEDS ORDERED: FLONASE 0.05% N16 GM (15:08)
[2016-09-19] MEDS ORDERED: OMEPRAZOLE20 M2 PO (15:09)
== END 2016-09-19 18:43 | disposition home or self-care (01) | DRG 246 ==
LOC: CED 10:29 → CEDOF 10:30 → CICCU3 13:00 → C5C 09-17 17:54
PROVIDERS: Emergency Medicine; Family Medicine; Internal Medicine; Internal Medicine Cardiovascular Disease; Internal Medicine Pulmonary Disease
PROC: 05HN33Z Insertion of Infusion Device into Left Internal Jugular Vein, Percutaneous Approach (ICD-10-PCS; principal; 2016-09-11)
PROC: B544ZZA Ultrasonography of Left Jugular Veins, Guidance (ICD-10-PCS; 2016-09-11)
PROC: 04HL33Z Insertion of Infusion Device into Left Femoral Artery, Percutaneous Approach (ICD-10-PCS; 2016-09-11)
PROC: 0BH17EZ Insertion of Endotracheal Airway into Trachea, Via Natural or Artificial Opening (ICD-10-PCS; 2016-09-11)
PROC: 5A1945Z Respiratory Ventilation, 24-96 Consecutive Hours (ICD-10-PCS; 2016-09-11)
PROC: B246YZZ Ultrasonography of Right and Left Heart using Other Contrast (ICD-10-PCS; 2016-09-12)
PROC: 0DH67UZ Insertion of Feeding Device into Stomach, Via Natural or Artificial Opening (ICD-10-PCS; 2016-09-13)
PROC: 027135Z Dilation of Coronary Artery, Two Arteries with Two Drug-eluting Intraluminal Devices, Percutaneous Approach (ICD-10-PCS; 2016-09-15)
PROC: 4A023N7 Measurement of Cardiac Sampling and Pressure, Left Heart, Percutaneous Approach (ICD-10-PCS; 2016-09-15)
PROC: B211YZZ Fluoroscopy of Multiple Coronary Arteries using Other Contrast (ICD-10-PCS; 2016-09-15)
PROC: B215YZZ Fluoroscopy of Left Heart using Other Contrast (ICD-10-PCS; 2016-09-15)
DX: I47.2 Ventricular tachycardia (principal); J96.01 Acute respiratory failure with hypoxia; I21.4 Non-ST elevation (NSTEMI) myocardial infarction; I46.9 Cardiac arrest, cause unspecified; J69.0 Pneumonitis due to inhalation of food and vomit; G93.1 Anoxic brain damage, not elsewhere classified; N39.0 Urinary tract infection, site not specified; T82.855A Stenosis of coronary artery stent, initial encounter; N17.9 Acute kidney failure, unspecified; E87.2 Acidosis; M62.82 Rhabdomyolysis; I25.10 Atherosclerotic heart disease of native coronary artery without angina pectoris; I10 Essential (primary) hypertension; E78.5 Hyperlipidemia, unspecified; Z82.49 Family history of ischemic heart disease and other diseases of the circulatory system; F17.210 Nicotine dependence, cigarettes, uncomplicated; I25.2 Old myocardial infarction; J44.9 Chronic obstructive pulmonary disease, unspecified; R73.9 Hyperglycemia, unspecified; I25.5 Ischemic cardiomyopathy
CPT/HCPCS: 36415; 36600; 51702; 70450; 71010; 74000; 80048; 80053; 80061; 80076; 80176; 80307; 81003; 82550; 82553; 82803; 82947; 83036; 83605; 83735; 83880; 84100; 84443; 84484; 85025; 85027; 85049; 85347; 85610; 85730; 86850; 86900; 86901; 87040; 87070; 87086; 87205; 92526; 92610; 93005; 93306; 94002; 94003; 94760; 94761; 96360; 96361; 97116; 97163; 97167; 97530; 97535; 99291; C1725; C1769; C1874; C1887; C1894; C9113; G0480; J0153; J0282; J0360; J0610; J0696; J1327; J1644; J1815; J2001; J2250; J2370; J2543; J3010; J3475; J3490

== ENCOUNTER → 2016-10-06 | Outpatient (CLI) | payer OTHER ==
[~2016-10-06] MED LIST: ALDACTONE25 MG PO; AMIODARONE PO; ASPIRIN81 M2 PO; ATORVASTATIN CA80 MG PO; BRILINTA90 MG PO; CLOPIDOGREL75 MG PO; FLONASE 0.05% N16 GM; KCL PO; LASIX PO; LIPITOR20 MG PO; MAGNESIUM400 MG PO; METOPROLOL SUCC50 MG PO; METOPROLOL TAR25 MG PO; NITROSTAT0.4 MG SL; OMEPRAZOLE20 M2 PO; PLAVIX PO; ZESTRIL2.5 MG PO
[2016-10-06 13:55] LABS: CALCIUM SERUM 9.1 mg/dL (8.4-10.2); CREATININE SERUM 1.3 mg/dL (0.6-1.4); GLOM FILT RATE Estimated 60.6 mL/min (>60); MAGNESIUM 2.2 mg/dL (1.6-3.0); POTASSIUM 3.8 mmol/L (3.5-5.1)
== END | disposition home or self-care (01) ==
LOC: CLAB 12:59
PROVIDERS: Internal Medicine Cardiovascular Disease
DX: I50.9 Heart failure, unspecified (principal); I42.9 Cardiomyopathy, unspecified
CPT/HCPCS: 36415; 80048; 83735; 83880

== ENCOUNTER 2016-11-06 19:42 | Inpatient (IN) | payer OTHER ==
--- NOTE | ~2016-11-06 | EKG ---
PATIENT: VENKATA TAYLOR UNIT #: [id number] Ventricular Rate: 171 BPM Atrial Rate: 0 BPM QRS Duration: 258 ms Q-T Interval: 384 ms QTC Calculation(Bezet): 647 ms Calculated R [place]: -86 degrees Calculated T [place]: -106 degrees Diagnosis Line: Wide QRS tachycardia Ventricular tachycardia Diagnosis Line: Left axis deviation Diagnosis Line: Non-specific intra-ventricular conduction block Diagnosis Line: Inferior infarct , age undetermined Diagnosis Line: Anterolateral infarct , age undetermined Diagnosis Line: Abnormal ECG Diagnosis Line: When compared with ECG of 19-SEP-2016 06:39, Diagnosis Line: Wide QRS tachycardia has replaced Sinus rhythm Diagnosis Line: Vent. rate has increased BY 107 BPM Diagnosis Line: Confirmed by RICARDO SANTOS MD ([id number]) on 11/06/2016 Diagnosis Line: 10:38:56 PM INTERPRETING MD: TOM CARRILLO
--- NOTE | ~2016-11-06 | DS ---
Unit #: [id number] #: [id number] Patient: VENKATA TAYLOR [id number] [facility]. [place], [place] [address] [id number] I MR#: [id number] NAME: VENKATA TAYLOR ROOM: [facility] Age: 56 Sex: M Admission Date: 11/06/2016 : 1960 Discharge Date: 11/07/2016 Attending Physician: Analia Roth M.D. Primary Care Physician: Josias Toussaint M.D. DISCHARGE SUMMARY SHORT STAY NOTE REASON FOR ADMISSION Wide QRS tachycardia (ventricular tachycardia). 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 He has a longstanding prior history of coronary artery disease when he was noted to have a totally occluded nondominant right coronary artery and also had undergone successful PCI with stent insertion on diagonal branch of LAD. In September of 2016 following his cardiorespiratory arrest, he was resuscitated successfully; was treated with hypothermia protocol; and subsequently underwent a cardiac catheterization that revealed a patent stent in diagonal branch of LAD, an occluded nondominant right coronary artery, left main coronary artery and left anterior descending artery were normal, and anterior marginal branch of circumflex showed a 95% stenosis. He us angioplasty with stent insertion on marginal branch of circumflex, which was complicated by a no flow phenomenon into the PDA and PLV branch of circumflex coronary artery. Post angioplasty, his course was uneventful. He was subsequently discharged home on a combination of beta-blockers, amiodarone, afterload reducing agents, and discussions with electrophysiologists at that time had suggested that patient should wait for left ventricular function recovery and, as ventricular tachycardia and fibrillation had been in the setting of an acute AR, AICD implantation should wait. Patient joined cardiac rehabilitation. He would come and exercise under cardiac rehab protocol and was doing reasonable well. He had not experienced any chest pain, palpitations, dizziness, lightheadedness, syncope, or near syncope. Yesterday morning, the patient noted that his LifeVest was activated and patient mistakenly thought it was a LifeVest malfunction and switched off the device. He continued to do his day-to-day activities without any symptoms of angina, palpitations, shortness of breath, dizziness, diplopia, or lightheadedness and was noted to have a wide QRS tachycardia at a rate of 160-170 beats per minute. He was transferred to the emergency room where intravenous amiodarone was started. He was cardioverted using 50 joules per second of biphasic current and resumed a sinus bradycardia at a rate of about 45 beats per Unit #: [id number] #: [id number] Patient: VENKATA TAYLOR. Over the last few weeks, the patient has noticed palpitations on numerous occasions and his LifeVest had indicated arrhythmia, but the patient would turn off the LifeVest thinking it was a malfunction. PAST MEDICAL HISTORY 1. Myocardial infarction in 2008 followed by PCI with stent insertion in diagonal branch of LAD. 2. Hypertension. 3. No history of diabetes mellitus. 4. Hyperlipidemia. 5. Continued nicotine abuse. FAMILY HISTORY Positive for coronary artery disease. PHYSICAL EXAMINATION GENERAL APPEARANCE: Reveals a middle-aged male in no acute cardiorespiratory distress. VITAL SIGNS: Heart rate is 48 beats per minute. NECK: There is no jugular venous distention. Both carotid upstrokes are normal without any bruits. EXTREMITIES: There is no ankle edema. CARDIAC: Shows apical impulse is palpable in fifth intercostal space in mid clavicular line and is normal. Both heart sounds are normal. No rubs or clicks are audible. There is no murmur. CHEST: Shows good air entry bilaterally without any rales or rhonchi. ABDOMEN: Shows no hepatosplenomegaly, free fluid, or masses. RECTAL: Deferred. TRAINING AND DEVELOPMENT PROFESSIONAL: Within normal limits. DIAGNOSTIC STUDIES CARDIOVASCULAR: Electrocardiogram shows sinus bradycardia, old inferolateral wall myocardial infarction, and no acute ischemic changes are noted. EKG at the time of admission on 11/06/16 at 5:32 p.m. shows wide QRS tachycardia (ventricular tachycardia) at a rate of 170 beats per minute. Echocardiogram done this morning shows an ejection fraction of about 35% to 40%. There is moderate mitral regurgitation, mild tricuspid regurgitation, mild pulmonary incontinence, and moderately dilated left ventricle. LABORATORY: CK MB% is 9.2, creatinine was 2.2 at the time of admission and is 1.4 on the morning of 11/07, GFR was 32 and is back to 55.4, and troponin is down to 1.15 with a CK MB% of 8.9. Hemoglobin is 12.3, hematocrit 35.6, and 9000 white cells are seen with a normal differential. DIAGNOSIS 1. Monomorphic ventricular tachycardia. 2. Ischemic heart disease with old inferolateral wall myocardial infarction. 3. History of coronary artery disease, inferior wall myocardial infarction in 2008. 4. History of percutaneous coronary intervention with stent insertion, diagonal branch of left anterior descending in 2008. 5. Percutaneous coronary intervention with stent insertion to circumflex coronary artery and marginal branch of circumflex, September of 2016 Unit #: [id number] #: [id number] Patient: VENKATA TAYLOR following resuscitated cardiorespiratory arrest. 6. Nicotine abuse. 7. Left ventricular systolic dysfunction, ejection fraction 35%, PLAN Patient would be transferred to [facility] on intravenous amiodarone and would undergo an ICD placement. This was discussed with Dr. Arthur. DISCHARGE MEDICATIONS His other medicines will include the followin. Aspirin 81 mg daily. 2. Metoprolol 12.5 b.i.d. 3. Lipitor 20 mg at bedtime. 4. Brilinta 90 mg p.o. b.i.d. 5. Potassium 40 mEq daily. 6. Zestril 2.5 mg daily. 7. Nitrostat p.r.n. 8. Lasix 40 mg p.o. daily. 9. Aldactone 12.5 mg daily. 10. Magnesium 400 mg p.o. b.i.d. Dictated by... Salty Lowry TD: 11/07/2016 13:59 JOB #: [id number] DISCHARGE SUMMARY Page 1 of 1 X Darius Kyle MD X DISCHARGE SUMMARY
--- NOTE | ~2016-11-06 | EKG ---
PATIENT: VENKATA TAYLOR UNIT #: [id number] Ventricular Rate: 43 BPM Atrial Rate: 43 BPM P-R Interval: 188 ms QRS Duration: 100 ms Q-T Interval: 508 ms QTC Calculation(Bezet): 429 ms P [place]: 63 degrees Calculated R [place]: 42 degrees Calculated T [place]: 99 degrees Diagnosis Line: Marked sinus bradycardia Diagnosis Line: Inferior infarct , age undetermined T wave Diagnosis Line: abnormality, consider anterior ischemia Diagnosis Line: Abnormal ECG Diagnosis Line: When compared with ECG of 06-NOV-2016 17:32, Diagnosis Line: Sinus rhythm has replaced Ventricular tachycardia Diagnosis Line: Vent. rate has decreased BY 128 BPM Diagnosis Line: Confirmed by DARRYL AMAYA MD ([id number]) on 11/09/2016 Diagnosis Line: 11:45:22 AM INTERPRETING MD: JOSE LUIS CARRILLO
--- NOTE | ~2016-11-06 | CR72 ---
[facility] A Service of [facility] & [facility] RADIOLOGY TEXT RESULTS PATIENT: VENKATA TYALOR [facility] 58 UNIT #: [id number] AGE: [address]: Analia Roth MD SEX: M ORDER DR: [id number] [facility] [address] [facility] [place], [place] [address] [id number] I MR#: [id number] Acc #: [id number] NAME: VENKATA TAYLOR : 1960 SEX: M STUDY DATE/TIME: 11/06/2016 18:36 UNIT: [facility] ROOM: [id number] STUDY DESCRIPTION: CR Chest Single View Portable Attending Physician: Analia Roth M.D. Ordering Physician: Ed Doctor [id number] [facility] Primary Care Physician: Josias Toussaint M.D. MEDICAL IMAGING REPORT This report is preliminary unless electronic signature is present EXAM Portable chest, 11/06/16 HISTORY Chest pain, arrhythmia, cough. Symptoms began today COMPARISON STUDIES 09/17/16 FINDINGS AP radiograph of the chest is presented. Interval removal of central venous catheter. Heart mildly enlarged. Prior coronary artery stenting. Lungs are well inflated and clear. No pneumothorax. No suspicious nodule. No indicate of acute infectious or inflammatory disease. Bony structures unremarkable. Dictated by... Daniel Armstrong M.D. THIS IS AN ELECTRONICALLY VERIFIED REPORT Daniel Armstrong M.D. at 11/07/2016 10:21 PM Juan TD: 11/06/2016 22:51 JOB #: [id number] MEDICAL IMAGING REPORT Page 1 of 1 COPY
[2016-11-06 18:18] LABS: BASOPHIL# 0.1 X10e3 (0-0.3); BASOPHIL% 0.7 % (0-2.5); EOSINOPHIL# 0.2 X10e3 (0-0.7); EOSINOPHIL% 2.2 % (0.0-7.0); HEMATOCRIT 35.6 % (38.0-50.0); HEMOGLOBIN 12.3 gm/dL (13.0-16.0); LYMPHOCYTE# 2.4 X10e3 (1.0-3.5); LYMPHOCYTE% 26.2 % (17.0-45.0); MEAN CELL VOLUME 93.8 FL (83-96); MEAN CORPUSCULAR HEMOGLOBIN 32.5 PG (28-34); MEAN CORPUSCULAR HGB CONC 34.6 g/dL (30-36); MEAN PLATELET VOLUME 7.8 FL (6.5-11.5); MONOCYTE% 10.6 % (3.0-12.0); NEUTROPHIL# 5.4 X10e3 (1.5-7.1); NEUTROPHIL% 60.3 % (40-75); PLATELET COUNT 241 X10e3 (140-420); RED CELL DISTRIBUTION WIDTH 13.8 % (11.0-15.5)
[2016-11-06 18:21] LABS: DIFF IND NO
[2016-11-06 18:37] LABS: PARTIAL THROMBOPLASTIN TIME 23.8 SECONDS (23.5-31.3)
[2016-11-06 18:39] LABS: BUN/CREATININE RATIO 15.9; CALCIUM SERUM 9.5 mg/dL (8.4-10.2); CREATININE SERUM 2.2 mg/dL (0.6-1.4); GLOM FILT RATE Estimated 32.1 mL/min (>60); POTASSIUM 4.1 mmol/L (3.5-5.1)
[2016-11-06 18:44] LABS: POC - CKMB 3.7 ng/mL (0.0-7.9); POC - TROPONIN 0.26 ng/mL (<=0.05)
[~2016-11-06 19:42] MED LIST changes: -PLAVIX PO
[2016-11-06 20:38] LABS: POC - CKMB 5.6 ng/mL (0.0-7.9); POC - TROPONIN 0.45 ng/mL (<=0.05)
[2016-11-07 02:02] LABS: MAGNESIUM 2.1 mg/dL (1.6-3.0)
[2016-11-07 02:20] LABS: %MB 9.2 % (0.0-4.0); MB 13.5 ng/ml
[2016-11-07 07:24] LABS: PARTIAL THROMBOPLASTIN TIME 23.3 SECONDS (23.5-31.3); PROTHROMBIN TIME (PATIENT) 10.5 SECONDS (9.6-11.5)
[2016-11-07 07:58] LABS: BUN/CREATININE RATIO 17.14; CALCIUM SERUM 8.1 mg/dL (8.4-10.2); CREATININE SERUM 1.4 mg/dL (0.6-1.4); GLOM FILT RATE Estimated 55.4 mL/min (>60); MAGNESIUM 2.1 mg/dL (1.6-3.0); POTASSIUM 3.8 mmol/L (3.5-5.1)
[2016-11-07 08:26] LABS: %MB 8.9 % (0.0-4.0); MB 12.4 ng/ml
== END 2016-11-07 09:30 | DRG 310 ==
LOC: CED 19:42 → CEDOF 20:20 → CICCU3 11-07 00:43
PROVIDERS: Emergency Medicine; Internal Medicine Cardiovascular Disease
PROC: B246ZZZ Ultrasonography of Right and Left Heart (ICD-10-PCS; principal; 2016-11-07)
DX: I47.2 Ventricular tachycardia (principal); F17.210 Nicotine dependence, cigarettes, uncomplicated; I25.10 Atherosclerotic heart disease of native coronary artery without angina pectoris; Z95.5 Presence of coronary angioplasty implant and graft; I25.2 Old myocardial infarction; Z82.49 Family history of ischemic heart disease and other diseases of the circulatory system
CPT/HCPCS: 36415; 71010; 80048; 80061; 82550; 82553; 83735; 84484; 85025; 85610; 85730; 93005; 93306; 96365; 96366; 96375; 99291; J0282; J1650

== ENCOUNTER → 2016-11-23 | Outpatient (CLI) | payer OTHER ==
[~2016-11-23] MED LIST changes: +PLAVIX PO
--- NOTE | ~2016-11-23 | CR63 ---
[facility] A Service of [facility] & [facility] RADIOLOGY TEXT RESULTS PATIENT: VENKATA TAYLOR LOCATION: [facility] : 58 UNIT #: [id number] AGE: [address]: Darius Kyle MD SEX: M ORDER DR: [id number] [facility] [address] [place], [place] [address] [id number] MR#: [id number] Acc #: [id number] NAME: VENKATA TAYLOR : 1960 SEX: M STUDY DATE/TIME: 11/23/2016 12:06 UNIT: [facility] ROOM: STUDY DESCRIPTION: CR Chest 2 View Attending Physician: Darius Kyle M.D. Referring Physician: Darius Kyle M.D. Ordering Physician: Darius Kyle M.D. Primary Care Physician: Josias Toussaint M.D. MEDICAL IMAGING REPORT This report is preliminary unless electronic signature is present EXAM Chest PA and lateral 11/23/2016. HISTORY Congestive heart failure, hemoptysis for 2 days, cough. FINDINGS The heart is normal in size. Cardiac pacemaker extends from the left subclavian approach with leads in the right atrium and right ventricle. There is no pneumothorax. The lungs are clear. There are no pleural effusions. IMPRESSION No active pulmonary disease. Dictated by... Brice Claros M.D. THIS IS AN ELECTRONICALLY VERIFIED REPORT Brice Claros M.D. at 11/24/2016 8:11 AM KRT/gz TD: 11/23/2016 14:42 JOB #: [id number] MEDICAL IMAGING REPORT Page 1 of 1 COPY
== END | disposition home or self-care (01) ==
LOC: CRAD 10:32
DX: I50.9 Heart failure, unspecified (principal)
CPT/HCPCS: 71020

== ENCOUNTER 2017-01-03 17:07 | Inpatient (IN) | payer OTHER ==
--- NOTE | ~2017-01-03 | EKG ---
PATIENT: VENKATA TAYLOR UNIT #: [id number] Ventricular Rate: 75 BPM Atrial Rate: 75 BPM QRS Duration: 90 ms Q-T Interval: 444 ms QTC Calculation(Bezet): 495 ms Calculated R [place]: 41 degrees Calculated T [place]: 43 degrees Diagnosis Line: Sinus beats and atria paced beats with frequent Diagnosis Line: Premature ventricular complexes in a pattern of Diagnosis Line: bigeminy Diagnosis Line: Possible Inferior infarct , age undetermined Diagnosis Line: Abnormal ECG Diagnosis Line: When compared with ECG of 03-JAN-2017 17:17, Diagnosis Line: (unconfirmed) Diagnosis Line: Rhythm sinus with frequent PVC's Diagnosis Line: Vent. rate has decreased BY 78 BPM Diagnosis Line: Confirmed by ASIM TEMPLETON MD ([id number]) on Diagnosis Line: 01/04/2017 7:33:12 AM INTERPRETING MD: SARAI
--- NOTE | ~2017-01-03 | DS ---
Unit #: [id number] #: [id number] Patient: VENKATA TAYLOR [id number] [address] [place], [place] [address] [id number] MR#: [id number] NAME: VENKATA TAYLOR ROOM: 570 Age: 56 Sex: M Admission Date: 01/03/2017 : 1960 Discharge Date: 01/04/2017 Attending Physician: Beka Fisher M.D. Primary Care Physician: Josias Toussaint M.D. DISCHARGE SUMMARY SHORT STAY SUMMARY CHIEF COMPLAINT Ventricular tachycardia. HISTORY OF PRESENT ILLNESS This is a 56-year-old white male who is a patient of Dr. Kyle with a previous medical history of coronary artery disease, status post NM x3 with a drug-eluting stent to his left circumflex, obtuse marginal, and mid LAD. In September 2016, he had a cardiopulmonary arrest and was successfully resuscitated. At that time, he underwent a cardiac catheterization that revealed a patent stent in the diagonal branch of the LAD and occluded nondominant right coronary artery. Left main coronary artery and left anterior descending arteries were normal, and anterior marginal branch of the circumflex showed a 95% stenosis. At that time, he underwent angioplasty with stent placed to the marginal branch of the circumflex. In October 2016, he had recurrent ventricular tachycardia, and an AICD was implanted. In addition, he has a history of hypertension, hyperlipidemia, and former tobacco abuse. He was at cardiac rehab yesterday, and his heart rate was found to be elevated in the 150s. He states he felt a little weak. His AICD did not discharge at the time. He was brought into the ER where his AICD was interrogated and adjusted. He denies any chest pain or pressure and denies any recent illness or fevers, chills, or body aches. In the ER, he was bolused with amiodarone and started on an amiodarone drip. This morning, he currently has no complaints. He is requesting to go home. He is in normal sinus rhythm with a rate in the 60s and stable for discharge. PAST MEDICAL HISTORY 1. Myocardial infarction x3. 2. ST-segment elevation myocardial infarction in 2012, status post drug-eluting stent to left circumflex, second obtuse marginal branch, and the mid LAD. 3. Ischemic cardiomyopathy with LVEF 30% to 35% per echo in September 2016, status post AICD in October 2016. 4. Status post cardiopulmonary arrest in August 2016 after ventricular tachycardia. 5. Hypertension. 6. Hyperlipidemia. 7. Reformed tobacco abuse. 8. Cardiac catheterization 2012 showed LAD with 40%, diagonal 80% mid, Unit #: [id number] #: [id number] Patient: VENKATA TAYLOR distal LAD with mild tortuosity, left circumflex second marginal branch occluded at the proximal portion of the previously placed stent, right coronary artery occluded proximally, and EF of 40% to 45%. PAST SURGICAL HISTORY No previous surgeries. SOCIAL HISTORY The patient is . He is a reformed tobacco user. He quit smoking in August 2016. He drinks two to three beers every weekend. Denies illicit drug use. FAMILY HISTORY Coronary artery disease. ALLERGIES No known drug allergies. HOME MEDICATIONS 1. Aspirin 81 mg p.o. daily. 2. Metoprolol tartrate 12.5 mg p.o. twice daily. 3. Lipitor 20 mg p.o. at bedtime. 4. Amiodarone 200 mg p.o. twice daily. 5. Potassium chloride 40 mEq p.o. daily. 6. Nitroglycerin sublingual 0.4 mg as needed for chest pain. 7. Lasix 40 mg p.o. twice daily. 8. Aldactone 25 mg p.o. daily. 9. Magnesium 400 mg p.o. twice daily. 10. Plavix 75 mg p.o. daily. REVIEW OF SYSTEMS Otherwise negative except for what was stated in the History of Present Illness. PHYSICAL EXAMINATION VITAL SIGNS: Temperature 97.5, heart rate 60, respiratory rate 16, and blood pressure 120/77. Height 67 inches, weight 84.8 kg. GENERAL: This is a pleasant 56-year-old male resting in bed in no acute distress. HEENT: Head is atraumatic and normocephalic. Pupils are equal and round. Mucous membranes are moist. NECK: Supple. Trachea is midline. Negative for JVD. LUNGS: Clear to auscultation. Nonlabored respirations. CARDIOVASCULAR: S1 and S2, regular rate and rhythm. Negative for murmurs, rubs, or gallops. ABDOMEN: Soft, nontender, and nondistended. EXTREMITIES: Pulses are palpable. No pedal edema. No cyanosis. NEUROLOGIC: Alert and oriented x3. Moves all extremities equally and follows commands without difficulty. DIAGNOSTIC STUDIES LABORATORY: Sodium 138, potassium 4.1, chloride 105, BUN 23, creatinine 1.8, and glucose 95. Hemoglobin 13.2, hematocrit 39.6, white blood cell count 7.7, and platelets 230,000. Magnesium 2.2. BNP 195. TSH 4.18. Point of care troponin less than 0.05. PT 10.9, INR 1, and PTT 24.7. IMAGING: Chest x-ray shows no acute findings. Unit #: [id number] #: [id number] Patient: VENKATA TAYLOR CARDIOLOGY: EKG sinus rhythm with ventricular rate of 60 and nonspecific T wave abnormalities. ASSESSMENT 1. Ventricular tachycardia. 2. Coronary artery disease, status post myocardial infarction x3, with drug-eluting stents to left circumflex, obtuse marginal, and mid left anterior descending. 3. Ischemic cardiomyopathy with ejection fraction of 30% to 35%, status post automatic implantable cardioverter-defibrillator implant in October 2016. 4. Status post cardiopulmonary arrest in August 2016. 5. Hypertension. 6. Hyperlipidemia. 7. Acute on chronic kidney disease. PLAN The patient is requesting to go home. We will increase his dose of metoprolol. He is not on an ANGELA or ARB for his ischemic cardiomyopathy due to acute on chronic kidney disease. We will ask Nephrology to see him and evaluate his renal function as an outpatient. He is to contact Dr. Rodgers for consideration of ANGELA or ARB for his cardiomyopathy with his chronic kidney disease. He is instructed to keep his appointment with his EP doctor, Dr. Arthur, on Sunday. He will follow up with Dr. Kyle in four to six weeks. We will discontinue his amiodarone drip and continue his amiodarone home dose of 200 mg p.o. twice daily. DISCHARGE DISPOSITION Home. Dictated by... Jennyfer Prescott APRN for Salty Metzger TD: 01/04/2017 16:05 JOB #: [id number] DISCHARGE SUMMARY Page 1 of 1 X X DISCHARGE SUMMARY
--- NOTE | ~2017-01-03 | CR72 ---
[facility] A Service of [facility] RADIOLOGY TEXT RESULTS PATIENT: VENKATA TAYLOR LOCATION: [facility] [id number] : [birth year] UNIT #: [id number] AGE: [address]: Bernardino Fisher MD SEX: M ORDER DR: [id number] [facility] [address]. [place], [place] [address] [id number] P MR#: [id number] Acc #: [id number] NAME: VENKATA TAYLOR : 1960 SEX: M STUDY DATE/TIME: 01/03/2017 17:26 UNIT: [id number] ROOM: STUDY DESCRIPTION: CR Chest Single View Portable Attending Physician: Arik Sher M.D. Ordering Physician: Arik Sher M.D. Primary Care Physician: Josias Toussaint M.D. MEDICAL IMAGING REPORT This report is preliminary unless electronic signature is present EXAM AP portable chest. DATE 01/03/2017 HISTORY 56-year-old male, tachycardia today. Pacemaker in place with stents. COMPARISON None. FINDINGS No acute airspace disease. Heart size within normal limits. Left side coronary artery stent in place. Left chest wall pacemaker and leads are stable. No pneumothorax. IMPRESSION No acute cardiopulmonary findings. Dictated by... Deedee Bernard M.D. THIS IS AN ELECTRONICALLY VERIFIED REPORT Deedee Bernard M.D. at 01/04/2017 8:36 AM UMA/afshin TD: 01/03/2017 18:14 JOB #: [id number] MEDICAL IMAGING REPORT Page 1 of 1 COPY
--- NOTE | ~2017-01-03 | EKG ---
PATIENT: VENKATA TAYLOR UNIT #: [id number] Ventricular Rate: 153 BPM Atrial Rate: 150 BPM QRS Duration: 216 ms Q-T Interval: 354 ms QTC Calculation(Bezet): 565 ms Calculated R [place]: -108 degrees Calculated T [place]: 101 degrees Diagnosis Line: Ventricular tachycardia Diagnosis Line: Abnormal ECG Diagnosis Line: When compared with ECG of 07-NOV-2016 06:03, Diagnosis Line: Rhythm no longer sinus Diagnosis Line: Vent. rate has increased BY 110 BPM Diagnosis Line: Confirmed by ASIM TEMPLETON MD ([id number]) on Diagnosis Line: 01/04/2017 7:29:17 AM INTERPRETING KATHE MOON
[~2017-01-03 17:07] MED LIST changes: -PLAVIX PO
[2017-01-03 17:29] LABS: BASOPHIL# 0.1 X10e3 (0-0.3); BASOPHIL% 0.9 % (0-2.5); EOSINOPHIL# 0.2 X10e3 (0-0.7); EOSINOPHIL% 2.1 % (0.0-7.0); HEMATOCRIT 39.6 % (38.0-50.0); HEMOGLOBIN 13.2 gm/dL (13.0-16.0); LYMPHOCYTE# 2.3 X10e3 (1.0-3.5); LYMPHOCYTE% 29.9 % (17.0-45.0); MEAN CELL VOLUME 95.6 FL (83-96); MEAN CORPUSCULAR HEMOGLOBIN 31.9 PG (28-34); MEAN CORPUSCULAR HGB CONC 33.4 g/dL (30-36); MEAN PLATELET VOLUME 7.9 FL (6.5-11.5); MONOCYTE% 12.5 % (3.0-12.0); NEUTROPHIL# 4.2 X10e3 (1.5-7.1); NEUTROPHIL% 54.6 % (40-75); PLATELET COUNT 230 X10e3 (140-420); RED BLOOD COUNT 4.14 X10e (3.90-5.60); RED CELL DISTRIBUTION WIDTH 13.8 % (11.0-15.5); WHITE BLOOD COUNT 7.7 X10e3 (4.0-10.5)
[2017-01-03 17:30] LABS: DIFF IND NO
[2017-01-03 17:38] LABS: POC - CKMB <1.0 ng/mL (0.0-7.9); POC - TROPONIN <0.05 ng/mL (<=0.05)
[2017-01-03 17:45] LABS: PARTIAL THROMBOPLASTIN TIME 24.7 SECONDS (23.5-31.3); PROTHROMBIN TIME (PATIENT) 10.9 SECONDS (10.0-11.7)
[2017-01-03 17:54] LABS: ALBUMIN SERUM 4.5 g/dL (3.5-5.0); BILIRUBIN, DIRECT 0.1 mg/dL (0.0-0.2); BILIRUBIN,INDIRECT 0.6 mg/dL (0.0-0.9); BILIRUBIN,TOTAL 0.7 mg/dL (0.2-2.0); BUN/CREATININE RATIO 12.77; CREATININE SERUM 1.8 mg/dL (0.6-1.4); GLOM FILT RATE Estimated 40.9 mL/min (>60); POTASSIUM 4.1 mmol/L (3.5-5.1); PROTEIN TOTAL SERUM 7.7 g/dL (6.0-8.3)
[2017-01-03 20:08] LABS: POC - CKMB <1.0 ng/mL (0.0-7.9); POC - TROPONIN <0.05 ng/mL (<=0.05)
[2017-01-03] MEDS ORDERED: PLAVIX PO (20:11)
== END 2017-01-04 11:00 | disposition home or self-care (01) | DRG 309 ==
LOC: CED 17:07 → CEDOF 21:30 → C5C 23:00 → CEDOF 23:00 → C5C 01-04 11:00
PROVIDERS: Emergency Medicine
DX: I47.2 Ventricular tachycardia (principal); N17.9 Acute kidney failure, unspecified; I25.10 Atherosclerotic heart disease of native coronary artery without angina pectoris; Z95.5 Presence of coronary angioplasty implant and graft; I25.2 Old myocardial infarction; I25.5 Ischemic cardiomyopathy; I12.9 Hypertensive chronic kidney disease with stage 1 through stage 4 chronic kidney disease, or unspecified chronic kidney disease; N18.9 Chronic kidney disease, unspecified; E78.5 Hyperlipidemia, unspecified; Z95.810 Presence of automatic (implantable) cardiac defibrillator
CPT/HCPCS: 36415; 71010; 80048; 80076; 82553; 83735; 83880; 84443; 84484; 85025; 85610; 85730; 93005; 96361; 96374; 96376; 99291; 99292; J0282; J2001; J2250; J3010

== ENCOUNTER → 2017-02-16 | Outpatient (CLI) | payer OTHER ==
[~2017-02-16] MED LIST changes: +PLAVIX PO
[2017-02-16 09:34] LABS: BUN/CREATININE RATIO 18.88; CALCIUM SERUM 8.9 mg/dL (8.4-10.2); CREATININE SERUM 1.8 mg/dL (0.6-1.4); GLOM FILT RATE Estimated 40.6 mL/min (>60); POTASSIUM 4.3 mmol/L (3.5-5.1)
== END | disposition home or self-care (01) ==
LOC: CLAB 08:37
PROVIDERS: Internal Medicine Cardiovascular Disease
DX: I50.9 Heart failure, unspecified (principal); Z95.810 Presence of automatic (implantable) cardiac defibrillator
CPT/HCPCS: 36415; 80048